=== PATIENT | female | born 1955 | race Caucasian/White ===

== ENCOUNTER → 2016-09-15 | Outpatient (CLI) | payer MEDICARE ==
--- NOTE | 2016-09-15 17:25 | REP ---
PET/CT: History: Restaging lymphoma after completed treatment. Stage III diffuse large B-cell lymphoma. Comparisons: Comparison PET-CT study from 03/11/2016. TECHNIQUE: 64 minutes following the intravenous injection of a 8.0 mCi dose of F-18 FDG, three-dimensional PET scintigraphy is acquired from the skull base to the proximal thighs. Triplanar noncontrast CT scanning is acquired through the same anatomic range for attenuation correction, and image registration with scan parameters optimized to minimize radiation exposure to the patient. PET scintigraphy and CT datasets were fused and displayed on a workstation with multiplanar and projection display capability. PET/CT Findings: The previously noted foci of hypermetabolic uptake have resolved. There is mildly increased FDG accumulation in an osteoarthritic appearing left first costochondral junction. No other abnormal hypermetabolic uptake is seen. The previously noted subclavian and axillary retrocrural and pleural-based hypermetabolic uptake is resolved. The upper abdominal periaortic lymphadenopathy is much improved with some residual soft-tissue surrounding the aorta but no hypermetabolic focus seen. Impression: No abnormal hypermetabolic uptake is seen. The CT is much improved. Some residual soft- tissue density in the area of the retrocrural and the periaortic lymphadenopathy but no hypermetabolic FDG distribution is observed. Signed by Pete Ramirez MD 09/15/2016 08:16 P
== END ==
LOC: M RAD 10:08
PROVIDERS: ATTEND Internal Medicine Medical Oncology
DX: C82.99 Follicular lymphoma, unspecified, extranodal and solid organ sites (principal)
CPT/HCPCS: 78815; A9552

== ENCOUNTER → 2016-10-25 | Outpatient (CLI) | payer MEDICARE ==
--- NOTE | 2016-10-25 11:17 | REPMRS ---
Patient History The patient states she had a clinical breast exam in 08/13.Patient is postmenopausal. No known family history of cancer. Took hormonal contraceptives for 6 years. Took unspecified hormones for 10 years. Digital Mammo Screening Bilat: October 25, 2016 - Exam #: [id number] Bilateral CC and MLO view(s) were taken. Technologist: Khushbu Herrera, Technologist Prior study comparison: October 22, 2015, bilateral digital mammo screening bilat performed at [facility]. September 30, 2014, bilateral digital mammo screening bilat performed at [facility]. September 27, 2013, bilateral bilat screen digital mammo, performed at [facility] ([facility]). FINDINGS: The breast tissue is almost entirely fat. There has been no change in the appearance of the mammogram from the prior studies. There is no interval development of dominant mass, architectural distortion, or clustered microcalcification typical of malignancy. ASSESSMENT: BI-RADS/ACR category 1 mammogram. Negative. Recommendation Routine screening mammogram of both breasts in 1 year (for women over age 40). This mammogram was interpreted with the aid of an FDA-approved computer-aided dectection system. Electronically Signed By: Jasvir Ramirez MD 10/25/16 [id number]
== END ==
LOC: M RAD 08:44
PROVIDERS: ATTEND Family Medicine
DX: Z12.31 Encounter for screening mammogram for malignant neoplasm of breast (principal)

== ENCOUNTER → 2016-11-12 | Outpatient (REF) | payer MEDICARE ==
[2016-11-12 12:04] LABS: BASO % 0.5 % (0.0-1.0); EOS # 0.1 K/mm3 (0.0-0.50); EOS % 1.7 % (0.0-3.0); LARGE UNSTAINED CELL # 0.1 K/mm3 (0.0-0.4); LARGE UNSTAINED CELL % 2.2 % (0.0-4.0); LYMPH # 1.9 K/mm3 (1.5-4.5); LYMPH % 30.4 % (24.0-44.0); MEAN CORPUSCULAR HEMOGLOBIN 33.2 pg (27.0-33.0); MEAN CORPUSCULAR HGB CONC 31.7 g/dl (32.0-36.5); MONO # 0.4 K/mm3 (0.0-0.8); MONO % 6.1 % (0.0-5.0); NEUTROPHILS # 3.5 K/mm3 (1.8-7.7); NEUTROPHILS % 59.1 % (36.0-66.0); PLATELET COUNT, AUTOMATED 237 k/mm3 (150-450); RED CELL DISTRIBUTION WIDTH 13.1 % (11.5-14.5); WHITE BLOOD COUNT 5.9 K/mm3 (4.0-10.0)
[2016-11-12 12:27] LABS: ALBUMIN 3.4 GM/DL (3.2-5.2); ALBUMIN/GLOBULIN RATIO 1.21 (1.00-1.93); ALKALINE PHOSPHATASE 89 U/L (45-117); ALT/SGPT 16 U/L (12-78); ANION GAP 8 MEQ/L (8-16); AST/SGOT 17 U/L (15-37); BILIRUBIN,TOTAL 0.3 MG/DL (0.2-1.0); BLOOD UREA NITROGEN 17 MG/DL (7-18); CALCIUM LEVEL 9.3 MG/DL (8.8-10.2); CARBON DIOXIDE LEVEL 29 MEQ/L (21-32); CHLORIDE LEVEL 108 MEQ/L (98-107); CHOLESTEROL LEVEL 148 MG/DL (<200); CREATININE FOR GFR 0.65 MG/DL (0.55-1.02); FERRITIN 62 NG/ML (8-252); GLOMERULAR FILTRATION RATE > 60.0 (>45); GLUCOSE, FASTING 99 MG/DL (80-110); PERCENT SATURATION 16.4 % (13.2-37.4); POTASSIUM SERUM 4.3 MEQ/L (3.5-5.1); SODIUM LEVEL 145 MEQ/L (136-145); TOTAL IRON BINDING CAPACITY 330 UG/DL (250-450); TOTAL PROTEIN 6.2 GM/DL (6.4-8.2); TRIGLYCERIDES LEVEL 64 MG/DL (<150)
== END ==
LOC: M SFHCPLAZ 09:06
PROVIDERS: ATTEND Family Medicine
DX: D50.9 Iron deficiency anemia, unspecified (principal); R73.01 Impaired fasting glucose; E53.8 Deficiency of other specified B group vitamins; Z79.899 Other long term (current) drug therapy

== ENCOUNTER → 2016-11-19 | Outpatient (REF) | payer MEDICARE | LOC: M SFHCPLAZ 11:03 | PROVIDERS: ATTEND Family Medicine | DX: M19.90 Unspecified osteoarthritis, unspecified site (principal) ==

== ENCOUNTER → 2016-12-02 | Outpatient (REF) | payer MEDICARE | LOC: M SFHCPLAZ 11:28 | PROVIDERS: ATTEND Family Medicine | DX: L57.0 Actinic keratosis (principal); D22.5 Melanocytic nevi of trunk ==

== ENCOUNTER → 2017-03-16 | Outpatient (CLI) | payer MEDICARE ==
--- NOTE | 2017-03-16 16:32 | REP ---
CT abdomen and pelvis with IV and oral contrast: Comparison is 02/09/2016. Multiphase scanning is performed initially without IV contrast and followed by dual phase contrast enhanced scanning during the arterial phase of enhancement and during the delayed equilibrium phase of enhancement. The liver and spleen are homogeneous and normal size and unchanged. Surgical clips are again identified in the gallbladder fossa. The pancreas is normal size and unremarkable. The adrenals and kidneys are unremarkable except for a nonobstructive right renal lower pole 8 mm calcification. This is unchanged. No left renal calculus is identified, the left renal calculus identified on the comparison study is no longer present. The retrocrural retroperitoneal adenopathy on the comparison study has significantly reduced in size. There is no iliac or femoral adenopathy in the pelvis. There is no mesenteric adenopathy. There is no ascites. There is no bowel distension. Pelvis: The appendix is surgically absent. There is no ascites or adenopathy. The bladder is unremarkable. There are no lytic, blastic or destructive skeletal changes. There is advanced degenerative disc disease at L5 -S1. Impression: The retrocrural/retroperitoneal adenopathy has significantly decreased in size. The previous nonobstructive left renal calculus is no longer present. There is a persisting nonobstructive right renal calculus. Liver and spleen are normal size. There is no ascites. Signed by Denys Herrera MD 03/16/2017 04:24 P
--- NOTE | 2017-03-16 17:36 | REP ---
CT study of the chest with IV contrast: History: Restaging lymphadenopathy. History of non-Hodgkins lymphoma. Comparison chest CT study 02/20/2016. CT contrast dose: 100 mL of Isovue [address] findings: No axillary or supraclavicular adenopathy is appreciated. No hilar or mediastinal mass or adenopathy is seen. There is a stable AP window region lymph node unchanged. The previously noted. Vertebral soft tissue mass lesion extending in the retrocrural space is improved significantly since the 02/20/2016 prior study. There is still some retrocrural and paravertebral soft tissue density but this is much less prominent. The lower thoracic aorta was somewhat uplifted by this process on the prior study. At the level of the origin of the celiac axis, the distance between the anterior cortex of the vertebral body and the posterior wall of the aorta is 4 mm today. Previously 8 mm. The paravertebral retrocrural lesion does extend down to the bottom of the imaging field of view for today's study. There is some thickening of the left adrenal gland which appears to be somewhat improved as well. No pleural effusion is seen. No pericardial effusion is seen. There is a mild pectus deformity. Lung window settings show some right apical posterior pleuroparenchymal scarring and some left apical posterior pleuroparenchymal scarring. No pulmonary nodule or mass lesion is seen. No bony destructive lesion is appreciated. Impression: Previously noted infiltrative prevertebral disease in the lower thoracic region and retrocrural region is improved. Enlargement of the left adrenal gland is again noted also improved. No new disease focus is appreciated. Signed by Pete Ramirez MD 03/17/2017 04:04 P
--- NOTE | 2017-03-16 17:47 | REP ---
CT NECK WITH CONTRAST: HISTORY: Non-Hodgkins lymphoma. CONTRAST: Isovue-370 75 mL. COMPARISON: 02/09/2016. There is a 9 cm cyst is present in the left tongue base. This is unchanged in size compared to the previous study. The cyst abuts the epiglottis. 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 This is unchanged compared to the previous study. The naso-, fredi-, and hypopharynx, larynx, and subglottic trachea are otherwise normal in appearance. The salivary glands are normal. The thyroid glands is hypoplastic. Small lymph nodes less than 1 cm in size are present in the internal jugular chains, posterior triangles and submandibular areas. There has been resolution of the previously noted left supraclavicular lymphadenopathy. Atherosclerotic calcification is present at the carotid bifurcations. Degenerative change is present in the cervical spine. Scarring is present in the lung apices. The visualized sinuses are clear. IMPRESSION: 1. 9 mm left tongue base cyst unchanged in size compared to the previous study. 2. There is a topic thyroid gland in the midline subcutaneous tissue anterior to the larynx. 3. There has been resolution of the previously noted left supraclavicular lymphadenopathy. Signed by Zain Mendiola MD 03/17/2017 08:18 A
== END ==
LOC: M RAD 13:52
PROVIDERS: ATTEND Internal Medicine Medical Oncology
DX: Z85.79 Personal history of other malignant neoplasms of lymphoid, hematopoietic and related tissues (principal)

== ENCOUNTER → 2017-03-31 | Outpatient (REF) | payer MEDICARE ==
[2017-03-31 12:57] LABS: BASO % 0.5 % (0.0-1.0); EOS # 0.1 K/mm3 (0.0-0.50); EOS % 2.2 % (0.0-3.0); LARGE UNSTAINED CELL # 0.1 K/mm3 (0.0-0.4); LARGE UNSTAINED CELL % 1.2 % (0.0-4.0); LYMPH # 1.8 K/mm3 (1.5-4.5); LYMPH % 27.4 % (24.0-44.0); MEAN CORPUSCULAR HEMOGLOBIN 33.6 pg (27.0-33.0); MEAN CORPUSCULAR HGB CONC 33.1 g/dl (32.0-36.5); MEAN CORPUSCULAR VOLUME 101.6 fl (80.0-96.0); MONO # 0.4 K/mm3 (0.0-0.8); NEUTROPHILS # 3.9 K/mm3 (1.8-7.7); NEUTROPHILS % 62.7 % (36.0-66.0); PLATELET COUNT, AUTOMATED 223 k/mm3 (150-450); RED CELL DISTRIBUTION WIDTH 13.7 % (11.5-14.5); WHITE BLOOD COUNT 6.3 K/mm3 (4.0-10.0)
[2017-03-31 13:21] LABS: ALBUMIN 3.3 GM/DL (3.2-5.2); ALBUMIN/GLOBULIN RATIO 1.03 (1.00-1.93); ALKALINE PHOSPHATASE 97 U/L (45-117); ALT/SGPT 21 U/L (12-78); ANION GAP 7 MEQ/L (8-16); AST/SGOT 15 U/L (15-37); BILIRUBIN,TOTAL 0.4 MG/DL (0.2-1.0); BLOOD UREA NITROGEN 12 MG/DL (7-18); CALCIUM LEVEL 9.3 MG/DL (8.8-10.2); CARBON DIOXIDE LEVEL 29 MEQ/L (21-32); CHLORIDE LEVEL 108 MEQ/L (98-107); CREATININE FOR GFR 0.68 MG/DL (0.55-1.02); FERRITIN 59 NG/ML (8-252); GLOMERULAR FILTRATION RATE > 60.0 (>45); GLUCOSE, FASTING 97 MG/DL (80-110); PERCENT SATURATION 22.3 % (13.2-45.0); POTASSIUM SERUM 4.3 MEQ/L (3.5-5.1); SODIUM LEVEL 144 MEQ/L (136-145); TOTAL IRON BINDING CAPACITY 345 UG/DL (250-450); TOTAL PROTEIN 6.5 GM/DL (6.4-8.2)
== END ==
LOC: M SFHCPLAZ 08:43
PROVIDERS: ATTEND Family Medicine
DX: D50.9 Iron deficiency anemia, unspecified (principal); E55.9 Vitamin D deficiency, unspecified; R73.01 Impaired fasting glucose

== ENCOUNTER → 2017-09-26 | Outpatient (CLI) | payer OTHER ==
[~2017-09-26] MED LIST: GASTROGRAFIN SOLUTION 30ML (Q9963) As Ordered; ISOVUE-370 76% 100ML VIAL (Q9967) As Ordered
== END ==
LOC: M RAD 09:15
DX: C83.30 Diffuse large B-cell lymphoma, unspecified site (principal)
CPT/HCPCS: Q9963

== ENCOUNTER → 2017-10-18 | Outpatient (CLI) | payer OTHER | LOC: M PLARAD 09:19 | DX: R93.5 Abnormal findings on diagnostic imaging of other abdominal regions, including retroperitoneum (principal); Z85.72 Personal history of non-Hodgkin lymphomas | CPT/HCPCS: 78815 ==

== ENCOUNTER → 2017-10-24 | Outpatient (REF) | payer MEDICARE ==
[2017-10-24 11:59] LABS: BASO % 0.5 % (0.0-1.0); EOS # 0.1 10^3/uL (0.0-0.50); EOS % 1.1 % (0.0-3.0); HEMATOCRIT 37.6 % (36.0-47.0); HEMOGLOBIN 12.4 g/dl (12.0-16.0); IMMATURE GRANULOCYTE % 0.3 % (0-3.0); LYMPH # 2.7 10^3/uL (1.5-4.5); LYMPH % 30.7 % (24.0-44.0); MEAN CORPUSCULAR HEMOGLOBIN 32.5 pg (27.0-33.0); MEAN CORPUSCULAR VOLUME 98.7 fl (80.0-96.0); MONO # 0.8 10^3/uL (0.0-0.8); MONO % 8.8 % (0.0-5.0); NEUTROPHILS # 5.1 10^3/uL (1.8-7.7); NEUTROPHILS % 58.6 % (36.0-66.0); PLATELET COUNT, AUTOMATED 318 10^3/uL (150-450); RED BLOOD COUNT 3.81 10^6/uL (4.00-5.40); RED CELL DISTRIBUTION WIDTH 13.8 % (11.5-14.5); WHITE BLOOD COUNT 8.8 10^3/uL (4.0-10.0)
[2017-10-24 12:09] LABS: ESTIMATED AVERAGE GLUCOSE 140 MG/DL (60-110); HEMOGLOBIN A1c 6.5 %
[2017-10-24 12:13] LABS: APPEARANCE, URINE CLEAR (CLEAR); BACTERIA, URINE AUTO 1+ (NEGATIVE); BILIRUBIN, URINE AUTO NEGATIVE (NEGATIVE); BLOOD, URINE BLOOD 1+ (NEGATIVE); COLOR, URINE YELLOW (YELLOW); GLUCOSE, URINE (UA) AUTO NEGATIVE (NEGATIVE); KETONE, URINE AUTO NEGATIVE (NEGATIVE); LEUKOCYTE ESTERASE, URINE AUTO TRACE (NEGATIVE); NITRITE, URINE AUTO NEGATIVE (NEGATIVE); PROTEIN, URINE AUTO NEGATIVE (NEGATIVE); RBC, URINE AUTO 5 /HPF (0-3); SQUAMOUS EPITHELIAL CELL UR AU 0 /HPF (0-6); UROBILINOGEN, URINE AUTO 0.2 mg/dL (0.0-2.0); WBC, URINE AUTO 2 /HPF (0-3)
[2017-10-24 12:14] LABS: VITAMIN B12 LEVEL 1615 PG/ML (247-911)
[2017-10-24 12:22] LABS: CHOLESTEROL LEVEL 160 MG/DL (<200); CHOLESTEROL RISK RATIO 2.711 (<5); FREE T4 1.18 NG/DL (0.76-1.46); HDL CHOLESTEROL 59 MG/DL (>40); LDL CHOLESTEROL 85.4 MG/DL (<100); NON-HDL-C 101 MG/DL; TRIGLYCERIDES LEVEL 78 MG/DL (<150)
[2017-10-24 12:32] LABS: CREATININE, URINE 74.6 MG/DL; MALB URINE SIEMENS 6.9 MG/L; MAU/CREAT RATIO 9.2 MCG/MG (0.0-30.0)
[2017-10-25 10:22] LABS: H PYLORI SERUM QUANT IgG ABY 0.15 (0.00-0.79)
== END ==
LOC: M SFHCPLAZ 08:33
DX: D50.9 Iron deficiency anemia, unspecified (principal); E03.9 Hypothyroidism, unspecified; R73.01 Impaired fasting glucose; M19.90 Unspecified osteoarthritis, unspecified site; E53.8 Deficiency of other specified B group vitamins
CPT/HCPCS: 84443

== ENCOUNTER → 2017-10-26 | Outpatient (CLI) | payer OTHER | LOC: M RAD 08:18 | DX: Z12.31 Encounter for screening mammogram for malignant neoplasm of breast (principal); C85.12 Unspecified B-cell lymphoma, intrathoracic lymph nodes; Z78.0 Asymptomatic menopausal state; Z92.0 Personal history of contraception; Z92.23 Personal history of estrogen therapy; E65 Localized adiposity; Z79.899 Other long term (current) drug therapy | CPT/HCPCS: 77067 ==

== ENCOUNTER → 2017-10-26 | Outpatient (REF) | payer OTHER ==
[2017-10-26 17:27] LABS: INR 0.99; PROTHROMBIN TIME 13.2 SECONDS (12.4-14.5)
[2017-10-26 17:28] LABS: PARTIAL THROMBOPLASTIN TIME 30.9 SECONDS (26.8-37.9)
[2017-10-26 18:17] LABS: IMMUNOGLOBULIN G 878 MG/DL (681-1648)
[2017-10-26 18:17] LABS: URIC ACID 4.6 MG/DL (2.6-6.0)
[2017-10-26 22:30] LABS: IMMUNOGLOBULIN M 13.8 MG/DL (40-230)
[2017-10-29 00:06] LABS: BETA 2 MICROGLOBULIN 1.6 mg/L (0.6-2.4)
== END ==
LOC: M LAB REF 16:33
DX: C85.12 Unspecified B-cell lymphoma, intrathoracic lymph nodes (principal)

== ENCOUNTER → 2017-10-27 | Outpatient (CLI) | payer OTHER | LOC: M RADPRO 12:53 | DX: D48.7 Neoplasm of uncertain behavior of other specified sites (principal); C85.15 Unspecified B-cell lymphoma, lymph nodes of inguinal region and lower limb; Z88.0 Allergy status to penicillin; Z88.8 Allergy status to other drugs, medicaments and biological substances; Z88.5 Allergy status to narcotic agent; Z79.82 Long term (current) use of aspirin; Z79.899 Other long term (current) drug therapy | CPT/HCPCS: 38505 ==

== ENCOUNTER → 2017-11-07 | Outpatient (REF) | payer OTHER ==
[2017-11-07 14:21] LABS: URIC ACID 3.1 MG/DL (2.6-6.0)
== END ==
LOC: M LAB REF 13:43
DX: C85.99 Non-Hodgkin lymphoma, unspecified, extranodal and solid organ sites (principal)
CPT/HCPCS: 84550

== ENCOUNTER → 2017-11-14 | Outpatient (REF) | payer OTHER ==
[2017-11-14 18:48] LABS: URIC ACID 2.7 MG/DL (2.6-6.0)
== END ==
LOC: M LAB REF 17:34
DX: C85.10 Unspecified B-cell lymphoma, unspecified site (principal)
CPT/HCPCS: 84550

== ENCOUNTER → 2017-11-15 | Outpatient (CLI) | payer OTHER ==
[~2017-11-15] MED LIST changes: -GASTROGRAFIN SOLUTION 30ML (Q9963) As Ordered
== END ==
LOC: M RAD 06:44
DX: C85.90 Non-Hodgkin lymphoma, unspecified, unspecified site (principal)
CPT/HCPCS: Q9967

== ENCOUNTER → 2017-11-28 | Outpatient (REF) | payer OTHER ==
[2017-11-28 13:27] LABS: URIC ACID 2.6 MG/DL (2.6-6.0)
== END ==
LOC: M LAB REF 12:44
DX: C83.30 Diffuse large B-cell lymphoma, unspecified site (principal)
CPT/HCPCS: 84550

== ENCOUNTER → 2017-12-12 | Outpatient (CLI) | payer OTHER ==
[~2017-12-12] MED LIST changes: +GASTROGRAFIN SOLUTION 30ML (Q9963) As Ordered
== END ==
LOC: M RAD 08:56
DX: C85.12 Unspecified B-cell lymphoma, intrathoracic lymph nodes (principal); C83.18 Mantle cell lymphoma, lymph nodes of multiple sites
CPT/HCPCS: Q9963

== ENCOUNTER 2017-12-26 14:28 | Outpatient (CLI) | payer OTHER ==
[2017-12-26] MEDS: diphenhydrAMINE 25 MG CAP PO (15:09)
[2017-12-26] MEDS: ACETAMINOPHEN TAB 650MG DOSE (2X325MG) PO (15:10)
== END 2017-12-26 21:05 | disposition home or self-care (01) ==
LOC: M OPCLI4PV 14:28 → M PCU 14:32 → M OPCLI4PV 21:05
DX: D64.81 Anemia due to antineoplastic chemotherapy (principal); C83.18 Mantle cell lymphoma, lymph nodes of multiple sites; C85.12 Unspecified B-cell lymphoma, intrathoracic lymph nodes; Z88.8 Allergy status to other drugs, medicaments and biological substances; Z88.0 Allergy status to penicillin; Z88.5 Allergy status to narcotic agent
CPT/HCPCS: 36430

== ENCOUNTER → 2017-12-26 | Outpatient (REF) | payer OTHER ==
[2017-12-26 17:47] LABS: IMMEDIATE SPIN CROSSMATCH 1 2
== END ==
LOC: M LAB REF 09:42
DX: Z12.39 Encounter for other screening for malignant neoplasm of breast (principal); D64.81 Anemia due to antineoplastic chemotherapy

== ENCOUNTER → 2018-01-10 | Outpatient (REF) | payer OTHER ==
[2018-01-10 13:33] LABS: INR 1.05; PROTHROMBIN TIME 13.8 SECONDS (12.4-14.5)
[2018-01-10 13:34] LABS: PARTIAL THROMBOPLASTIN TIME 29.1 SECONDS (26.8-37.9)
== END ==
LOC: M LAB REF 12:55
DX: C85.12 Unspecified B-cell lymphoma, intrathoracic lymph nodes (principal); C83.38 Diffuse large B-cell lymphoma, lymph nodes of multiple sites; Z79.01 Long term (current) use of anticoagulants
CPT/HCPCS: 85610

== ENCOUNTER 2018-01-13 11:02 | Inpatient (IN) | payer OTHER ==
[2018-01-13] MEDS ORDERED: ACETAMINOPHEN TAB 650MG DOSE (2X325MG) As Ordered (11:52)
[2018-01-13] MEDS: NS 1,000 ML IV (11:54)
[2018-01-13] MEDS: ACETAMINOPHEN TAB 650MG DOSE (2X325MG) PO (11:54)
[2018-01-13 12:09] LABS: BASO % 0.2 % (0.0-1.0); EOS % 0.2 % (0.0-3.0); HEMATOCRIT 25.6 % (36.0-47.0); HEMOGLOBIN 8.7 g/dl (12.0-15.5); IMMATURE GRANULOCYTE % 0.5 % (0-3.0); LYMPH # 0.7 10^3/uL (1.5-4.5); LYMPH % 6.6 % (24.0-44.0); MONO # 0.1 10^3/uL (0.0-0.8); MONO % 1.3 % (0.0-5.0); NEUTROPHILS # 9.2 10^3/uL (1.8-7.7); NEUTROPHILS % 91.2 % (36.0-66.0); PLATELET COUNT, AUTOMATED 193 10^3/uL (150-450); RED BLOOD COUNT 2.64 10^6/uL (4.00-5.40); RED CELL DISTRIBUTION WIDTH 20.4 % (11.5-14.5); VENOUS BASE EXCESS 4.9 (-2.0-2.0); VENOUS HCO3 30.8 MEQ/L (23.0-27.0); VENOUS O2 SATURATION 59.5 % (60.0-80.0); VENOUS PARTIAL PRESSURE CO2 53.3 mmHg (38.0-50.0); VENOUS PARTIAL PRESSURE O2 32.6 mmHg (30.0-50.0); VENOUS STANDARD HCO3 28.2 MEQ/L; VENOUS TOTAL CO2 32.5 MEQ/L (24.0-28.0); WHITE BLOOD COUNT 10.1 10^3/uL (4.0-10.0)
[2018-01-13 12:38] LABS: ALBUMIN 2.8 GM/DL (3.2-5.2); ALBUMIN/GLOBULIN RATIO 0.82 (1.00-1.93); ALKALINE PHOSPHATASE 111 U/L (45-117); ALT/SGPT 18 U/L (12-78); ANION GAP 6 MEQ/L (8-16); AST/SGOT 25 U/L (7-37); BILIRUBIN,DIRECT 0.2 MG/DL (0.0-0.2); BILIRUBIN,TOTAL 0.6 MG/DL (0.2-1.0); BLOOD UREA NITROGEN 21 MG/DL (7-18); CALCIUM LEVEL 7.7 MG/DL (8.8-10.2); CARBON DIOXIDE LEVEL 33 MEQ/L (21-32); CHLORIDE LEVEL 96 MEQ/L (98-107); CPK CREATINE PHOSPHOKINASE 118 U/L (26-192); CREATININE FOR GFR 1.29 MG/DL (0.55-1.30); GLOMERULAR FILTRATION RATE 44.3 (>45); GLUCOSE, FASTING 96 MG/DL (70-100); POTASSIUM SERUM 2.8 MEQ/L (3.5-5.1); SODIUM LEVEL 135 MEQ/L (136-145); TOTAL PROTEIN 6.2 GM/DL (6.4-8.2); TROPONIN I 0.03 NG/ML (< 0.10)
[2018-01-13 12:38] LABS: LACTIC ACID SEPSIS PROTOCOL 1.7 MMOL/L (0.4-2.0)
[2018-01-13] MEDS: CEFEPIME HCL 1 GM in D5W MINI-BAG PLUS 50 ML IV (12:40)
[2018-01-13 12:44] LABS: MB/CK RELATIVE INDEX 0.84 (< OR =4)
[2018-01-13] MEDS: POTASSIUM CHLORIDE 10 MEQ SR TABLET PO (13:04)
[2018-01-13 14:53] LABS: KETONE, URINE AUTO RFX NEGATIVE (NEGATIVE); NITRITE, URINE AUTO RFX NEGATIVE (NEGATIVE); RBC, URINE AUTO RFX 5 /HPF (0-3); SPECIFIC GRAVITY UR AUTO RFX 1.008 (1.002-1.035); SQUAM EPITHELIAL CELL UR AURFX 2 /HPF (0-6); WBC, URINE AUTO RFX 8 /HPF (0-3)
[2018-01-13 15:06] LABS: MAGNESIUM LEVEL 1.2 MG/DL (1.8-2.4)
[2018-01-13] MEDS: IPRATROPIUM 0.5MG/ALBUTEROL 2.5MG INH SOL UD 3ML (DUONEB)(J7620) NEB (15:08)
[2018-01-13] MEDS ORDERED: NS 1,000 ML IV (15:16)
[2018-01-13 15:40] LABS: IONIZED CALCIUM 4.2 MG/DL (4.5-5.3)
[2018-01-13 15:40] LABS: ABG BASE EXCESS 3.2 (-2.0-2.0); ABG HCO3 27.8 MEQ/L (22.0-26.0); ABG O2 SATURATION 92.8 % (95.0-99.0); ABG PARTIAL PRESSURE O2 71.3 mmHg (75.0-100.0); ABG STANDARD HCO3 27.3 MEQ/L (22.0-26.0); ABG TOTAL CO2 29.2 MEQ/L (23.0-31.0); ABG pH (ARTERIAL) 7.429 UNITS (7.350-7.450)
[2018-01-13] MEDS ORDERED: ALBUTEROL SULFATE 2.5 MG/0.5 ML INH NEB SOLN NEB (15:45)
[2018-01-13 16:05] LABS: LEUKOCYTE ESTERASE UR AUTO RFX TRACE (NEGATIVE)
[2018-01-13] MEDS ORDERED: PROCHLORPERAZINE 5 MG TAB (S0183) PO (17:00)
[2018-01-13] MEDS ORDERED: OLANZapine 10 MG TAB PO (17:00)
[2018-01-13 17:27] LABS: ERYTHROCYTE SEDIMENTATION RATE 129 mm/hr (0-30)
[2018-01-13] MEDS: GABAPENTIN 300 MG CAP PO ×2 (18:42→21:51)
[2018-01-13] MEDS: KCL 10MEQ/100ML SWI (KRUN) 10 MEQ in APPROPRIATE DILUENT 1 EA IV (18:42)
[2018-01-13] MEDS: MAGNESIUM OXIDE 400 MG TAB (MAG-OX) PO ×2 (18:42→21:52)
[2018-01-13] MEDS: BACLOFEN 10 MG TAB PO ×2 (18:42→21:52)
[2018-01-13] MEDS: ENOXAPARIN 40 MG/0.4 ML SYRINGE (J1650) SC (18:50)
[2018-01-13] MEDS: VANCOMYCIN HCL 1,000 MG, VIAL MATE ADAPTER 1 EACH in D5W 250 ML IV (20:14)
[2018-01-13] MEDS: MAG SULF 1GM/100ML (MAG RUN) 1 GM in APPROPRIATE DILUENT 1 EA IV ×2 (20:34→21:43)
[2018-01-13 20:40] LABS: ANION GAP 5 MEQ/L (8-16); BLOOD UREA NITROGEN 21 MG/DL (7-18); CALCIUM LEVEL 7.5 MG/DL (8.8-10.2); CARBON DIOXIDE LEVEL 31 MEQ/L (21-32); CHLORIDE LEVEL 100 MEQ/L (98-107); GLOMERULAR FILTRATION RATE 48.1 (>45); GLUCOSE, FASTING 99 MG/DL (70-100); MAGNESIUM LEVEL 1.2 MG/DL (1.8-2.4); POTASSIUM SERUM 3.5 MEQ/L (3.5-5.1); SODIUM LEVEL 136 MEQ/L (136-145)
[2018-01-13] MEDS: ADVAIR HFA 115/21MCG INHALER INH (21:00)
[2018-01-13] MEDS: VANCOMYCIN HCL 500 MG in D5W MINI-BAG PLUS 100 ML IV (21:43)
[2018-01-13] MEDS: KCL 20MEQ in NS 1000ML 1,000 ML IV (21:44)
[2018-01-13] MEDS: SIMVASTATIN 40 MG TAB PO (21:51)
[2018-01-13] MEDS: NYSTATIN 500,000 U/5 ML SUSP UDC SS (21:51)
[2018-01-13] MEDS: PRAMIPEXOLE 0.25 MG TAB PO (21:52)
[2018-01-13] MEDS: DOCUSATE SODIUM 100 MG CAP PO (21:52)
[2018-01-14] MEDS: CEFEPIME HCL 1 GM in D5W MINI-BAG PLUS 50 ML IV ×2 (01:20→12:58)
[2018-01-14 05:03] LABS: HEMATOCRIT 22.6 % (36.0-47.0); HEMOGLOBIN 7.6 g/dl (12.0-15.5); MEAN CORPUSCULAR HEMOGLOBIN 32.8 pg (27.0-33.0); MEAN CORPUSCULAR HGB CONC 33.6 g/dl (32.0-36.5); MEAN CORPUSCULAR VOLUME 97.4 fl (80.0-96.0); PLATELET COUNT, AUTOMATED 138 10^3/uL (150-450); RED BLOOD COUNT 2.32 10^6/uL (4.00-5.40); RED CELL DISTRIBUTION WIDTH 20.3 % (11.5-14.5); WHITE BLOOD COUNT 7.9 10^3/uL (4.0-10.0)
[2018-01-14 05:25] LABS: ANION GAP 7 MEQ/L (8-16); BLOOD UREA NITROGEN 18 MG/DL (7-18); CALCIUM LEVEL 7.7 MG/DL (8.8-10.2); CARBON DIOXIDE LEVEL 30 MEQ/L (21-32); CHLORIDE LEVEL 99 MEQ/L (98-107); CREATININE FOR GFR 1.06 MG/DL (0.55-1.30); GLOMERULAR FILTRATION RATE 55.6 (>45); GLUCOSE, FASTING 96 MG/DL (70-100); MAGNESIUM LEVEL 1.7 MG/DL (1.8-2.4); POTASSIUM SERUM 3.1 MEQ/L (3.5-5.1); SODIUM LEVEL 136 MEQ/L (136-145)
[2018-01-14] MEDS: BACLOFEN 10 MG TAB PO ×6 (05:25→21:48)
[2018-01-14] MEDS: LEVOTHYROXINE 88MCG TABLET (0.088 MG) PO (05:25)
[2018-01-14 05:43] LABS: ESTIMATED AVERAGE GLUCOSE 143 MG/DL (60-110); HEMOGLOBIN A1c 6.6 %
[2018-01-14] MEDS: VANCOMYCIN HCL 1,000 MG, VIAL MATE ADAPTER 1 EACH in D5W 250 ML IV ×2 (06:41→18:27)
[2018-01-14] MEDS: ADVAIR HFA 115/21MCG INHALER INH ×2 (07:31→21:06)
[2018-01-14 07:40] LABS: BEDSIDE GLUCOSE 127 MG/DL (80-115)
[2018-01-14] MEDS: NYSTATIN 500,000 U/5 ML SUSP UDC SS ×2 (09:15→21:48)
[2018-01-14] MEDS: GABAPENTIN 300 MG CAP PO ×4 (09:16→21:48)
[2018-01-14] MEDS: MAGNESIUM OXIDE 400 MG TAB (MAG-OX) PO ×3 (09:16→21:48)
[2018-01-14] MEDS: ESCITALOPRAM OXALATE 10 MG TAB (LEXAPRO) PO (09:16)
[2018-01-14] MEDS: ASPIRIN 81 MG ENTERIC TAB PO (09:16)
[2018-01-14] MEDS: ALLOPURINOL 300 MG TAB PO (09:17)
[2018-01-14] MEDS: CYANOCOBALAMIN 500 MCG TAB PO (09:17)
[2018-01-14] MEDS: ASCORBIC ACID 500 MG TAB PO (09:17)
[2018-01-14] MEDS: PRAMIPEXOLE 0.25 MG TAB PO ×2 (09:17→21:50)
[2018-01-14] MEDS: FOLIC ACID 1 MG TAB PO (09:17)
[2018-01-14] MEDS: OMEPRAZOLE 20 MG CAP PO (09:17)
[2018-01-14] MEDS: VITAMIN D 1,000 INTERNATIONAL UNITS TABLET PO (09:17)
[2018-01-14] MEDS: FERROUS SULFATE 325MG TAB PO (09:17)
[2018-01-14] MEDS: ENOXAPARIN 40 MG/0.4 ML SYRINGE (J1650) SC (09:19)
[2018-01-14 17:24] LABS: HEMATOCRIT 22.8 % (36.0-47.0); HEMOGLOBIN 7.6 g/dl (12.0-15.5)
[2018-01-14 17:56] LABS: MAGNESIUM LEVEL 1.4 MG/DL (1.8-2.4)
[2018-01-14] MEDS: POTASSIUM CHLORIDE 10 MEQ SR TABLET PO (18:27)
[2018-01-14 21:43] LABS: IMMEDIATE SPIN CROSSMATCH 1 1
[2018-01-14] MEDS: SIMVASTATIN 40 MG TAB PO (21:48)
[2018-01-14] MEDS: DOCUSATE SODIUM 100 MG CAP PO (21:48)
[2018-01-14] MEDS: MAGNESIUM CHLORIDE 64 MG TABCR (SLO MAG) PO (21:49)
[2018-01-15] MEDS: ONDANSETRON 4MG/2ML VIAL (J2405) IV ×2 (00:13→10:45)
[2018-01-15] MEDS: POTASSIUM CHLORIDE 10 MEQ SR TABLET PO ×3 (00:14→20:42)
[2018-01-15] MEDS: FUROSEMIDE 20 MG TAB PO (00:14)
[2018-01-15] MEDS: CEFEPIME HCL 1 GM in D5W MINI-BAG PLUS 50 ML IV ×2 (01:42→14:13)
[2018-01-15 06:33] LABS: HEMOGLOBIN 9.1 g/dl (12.0-15.5); MEAN CORPUSCULAR HEMOGLOBIN 32.4 pg (27.0-33.0); MEAN CORPUSCULAR VOLUME 92.5 fl (80.0-96.0); PLATELET COUNT, AUTOMATED 105 10^3/uL (150-450); RED BLOOD COUNT 2.81 10^6/uL (4.00-5.40); RED CELL DISTRIBUTION WIDTH 19.2 % (11.5-14.5); WHITE BLOOD COUNT 4.4 10^3/uL (4.0-10.0)
[2018-01-15] MEDS: LEVOTHYROXINE 88MCG TABLET (0.088 MG) PO (06:42)
[2018-01-15] MEDS: BACLOFEN 10 MG TAB PO ×6 (06:42→20:43)
[2018-01-15] MEDS: VANCOMYCIN HCL 1,000 MG, VIAL MATE ADAPTER 1 EACH in D5W 250 ML IV (06:43)
[2018-01-15 06:55] LABS: BLOOD UREA NITROGEN 14 MG/DL (7-18); CALCIUM LEVEL 7.9 MG/DL (8.8-10.2); CARBON DIOXIDE LEVEL 33 MEQ/L (21-32); CHLORIDE LEVEL 92 MEQ/L (98-107); CREATININE FOR GFR 1.02 MG/DL (0.55-1.30); GLOMERULAR FILTRATION RATE 58.1 (>45); GLUCOSE, FASTING 130 MG/DL (70-100); MAGNESIUM LEVEL 1.3 MG/DL (1.8-2.4)
[2018-01-15 06:56] LABS: VANCOMYCIN LEVEL TROUGH 20.6 UG/ML (10.0-20.0)
[2018-01-15 07:03] LABS: ANION GAP 9 MEQ/L (8-16); SODIUM LEVEL 134 MEQ/L (136-145)
[2018-01-15 07:29] LABS: POTASSIUM SERUM 2.9 MEQ/L (3.5-5.1)
[2018-01-15] MEDS: ADVAIR HFA 115/21MCG INHALER INH ×2 (08:22→21:00)
[2018-01-15] MEDS: OMEPRAZOLE 20 MG CAP PO (08:31)
[2018-01-15] MEDS: NYSTATIN 500,000 U/5 ML SUSP UDC SS ×2 (08:31→20:42)
[2018-01-15] MEDS: VITAMIN D 1,000 INTERNATIONAL UNITS TABLET PO (08:31)
[2018-01-15] MEDS: FOLIC ACID 1 MG TAB PO (08:31)
[2018-01-15] MEDS: MAGNESIUM OXIDE 400 MG TAB (MAG-OX) PO ×3 (08:33→20:43)
[2018-01-15] MEDS: ALLOPURINOL 300 MG TAB PO (08:34)
[2018-01-15] MEDS: ASCORBIC ACID 500 MG TAB PO (08:34)
[2018-01-15] MEDS: ASPIRIN 81 MG ENTERIC TAB PO (08:34)
[2018-01-15] MEDS: ESCITALOPRAM OXALATE 10 MG TAB (LEXAPRO) PO (08:34)
[2018-01-15] MEDS: FERROUS SULFATE 325MG TAB PO (08:34)
[2018-01-15] MEDS: CYANOCOBALAMIN 500 MCG TAB PO (08:34)
[2018-01-15] MEDS: ENOXAPARIN 40 MG/0.4 ML SYRINGE (J1650) SC (08:35)
[2018-01-15] MEDS: PRAMIPEXOLE 0.25 MG TAB PO ×2 (08:42→20:43)
[2018-01-15] MEDS: ACETAMINOPHEN TAB 650MG DOSE (2X325MG) PO ×2 (08:42→15:19)
[2018-01-15] MEDS: GABAPENTIN 300 MG CAP PO ×4 (08:42→20:43)
[2018-01-15 11:40] LABS: POTASSIUM SERUM 3.1 MEQ/L (3.5-5.1)
[2018-01-15] MEDS: IPRATROPIUM 0.5MG/ALBUTEROL 2.5MG INH SOL UD 3ML (DUONEB)(J7620) NEB ×2 (16:02→21:11)
[2018-01-15] MEDS: BENZONATATE 100 MG CAP PO (17:12)
[2018-01-15] MEDS: SIMVASTATIN 40 MG TAB PO (20:43)
[2018-01-15] MEDS: DOCUSATE SODIUM 100 MG CAP PO (20:43)
[2018-01-16] MEDS: CEFEPIME HCL 1 GM in D5W MINI-BAG PLUS 50 ML IV ×2 (00:19→12:44)
[2018-01-16] MEDS: IPRATROPIUM 0.5MG/ALBUTEROL 2.5MG INH SOL UD 3ML (DUONEB)(J7620) NEB ×4 (01:01→20:00)
[2018-01-16] MEDS: VANCOMYCIN HCL 1,000 MG, VIAL MATE ADAPTER 1 EACH in D5W 250 ML IV ×2 (01:08→18:07)
[2018-01-16] MEDS: BENZONATATE 100 MG CAP PO ×2 (01:43→12:44)
[2018-01-16] MEDS: LEVOTHYROXINE 88MCG TABLET (0.088 MG) PO (05:24)
[2018-01-16] MEDS: BACLOFEN 10 MG TAB PO ×6 (05:24→20:55)
[2018-01-16 05:26] LABS: ANION GAP 5 MEQ/L (8-16); BLOOD UREA NITROGEN 12 MG/DL (7-18); CALCIUM LEVEL 8.6 MG/DL (8.8-10.2); CARBON DIOXIDE LEVEL 37 MEQ/L (21-32); CHLORIDE LEVEL 92 MEQ/L (98-107); CREATININE FOR GFR 1.01 MG/DL (0.55-1.30); GLOMERULAR FILTRATION RATE 58.7 (>45); GLUCOSE, FASTING 110 MG/DL (70-100); MAGNESIUM LEVEL 1.4 MG/DL (1.8-2.4); POTASSIUM SERUM 3.3 MEQ/L (3.5-5.1); SODIUM LEVEL 134 MEQ/L (136-145)
[2018-01-16 05:30] LABS: BASO % 0.3 % (0.0-1.0); EOS % 0.5 % (0.0-3.0); HEMATOCRIT 26.6 % (36.0-47.0); IMMATURE GRANULOCYTE % 0.5 % (0-3.0); LYMPH # 0.8 10^3/uL (1.5-4.5); LYMPH % 12.4 % (24.0-44.0); MEAN CORPUSCULAR HEMOGLOBIN 31.8 pg (27.0-33.0); MEAN CORPUSCULAR HGB CONC 33.8 g/dl (32.0-36.5); MONO % 17.2 % (0.0-5.0); NEUTROPHILS # 4.2 10^3/uL (1.8-7.7); NEUTROPHILS % 69.1 % (36.0-66.0); RED BLOOD COUNT 2.83 10^6/uL (4.00-5.40); RED CELL DISTRIBUTION WIDTH 19.5 % (11.5-14.5); WHITE BLOOD COUNT 6.1 10^3/uL (4.0-10.0)
[2018-01-16 05:53] LABS: IMMATURE PLATELET FRACTION % 2.5 % (0.0-9.6); PLATELET COUNT, AUTOMATED 68 10^3/uL (150-450)
[2018-01-16] MEDS ORDERED: ISOVUE-370 76% 100ML VIAL (Q9967) As Ordered (07:41)
[2018-01-16] MEDS: ENOXAPARIN 40 MG/0.4 ML SYRINGE (J1650) SC (09:00)
[2018-01-16] MEDS: NYSTATIN 500,000 U/5 ML SUSP UDC SS ×2 (09:04→20:53)
[2018-01-16] MEDS: ALLOPURINOL 300 MG TAB PO (09:05)
[2018-01-16] MEDS: ASPIRIN 81 MG ENTERIC TAB PO (09:05)
[2018-01-16] MEDS: VITAMIN D 1,000 INTERNATIONAL UNITS TABLET PO (09:05)
[2018-01-16] MEDS: OMEPRAZOLE 20 MG CAP PO (09:05)
[2018-01-16] MEDS: GABAPENTIN 300 MG CAP PO ×4 (09:06→20:55)
[2018-01-16] MEDS: FOLIC ACID 1 MG TAB PO (09:06)
[2018-01-16] MEDS: MAGNESIUM OXIDE 400 MG TAB (MAG-OX) PO ×3 (09:06→20:55)
[2018-01-16] MEDS: POTASSIUM CHLORIDE 10 MEQ SR TABLET PO ×2 (09:06→20:54)
[2018-01-16] MEDS: PRAMIPEXOLE 0.25 MG TAB PO ×2 (09:07→20:55)
[2018-01-16] MEDS: CYANOCOBALAMIN 500 MCG TAB PO (09:07)
[2018-01-16] MEDS: ESCITALOPRAM OXALATE 10 MG TAB (LEXAPRO) PO (09:07)
[2018-01-16] MEDS: FERROUS SULFATE 325MG TAB PO (09:07)
[2018-01-16] MEDS: ASCORBIC ACID 500 MG TAB PO (09:08)
[2018-01-16] MEDS: ADVAIR HFA 115/21MCG INHALER INH ×3 (09:19→21:07)
[2018-01-16] MEDS ORDERED: SLF 3 ML SYR IV (12:30)
[2018-01-16] MEDS: SLF 3 ML SYR IV ×2 (12:44→20:56)
[2018-01-16] MEDS: ACETAMINOPHEN TAB 650MG DOSE (2X325MG) PO (16:04)
[2018-01-16] MEDS: DOCUSATE SODIUM 100 MG CAP PO (20:55)
[2018-01-16] MEDS: SIMVASTATIN 40 MG TAB PO (20:56)
[2018-01-17] MEDS: CEFEPIME HCL 1 GM in D5W MINI-BAG PLUS 50 ML IV ×2 (00:56→13:05)
[2018-01-17] MEDS: BENZONATATE 100 MG CAP PO ×2 (01:26→22:10)
[2018-01-17] MEDS: IPRATROPIUM 0.5MG/ALBUTEROL 2.5MG INH SOL UD 3ML (DUONEB)(J7620) NEB ×4 (01:43→20:00)
[2018-01-17 06:13] LABS: HEMATOCRIT 27.7 % (36.0-47.0); HEMOGLOBIN 9.2 g/dl (12.0-15.5); MEAN CORPUSCULAR HEMOGLOBIN 31.8 pg (27.0-33.0); MEAN CORPUSCULAR HGB CONC 33.2 g/dl (32.0-36.5); MEAN CORPUSCULAR VOLUME 95.8 fl (80.0-96.0); RED BLOOD COUNT 2.89 10^6/uL (4.00-5.40); RED CELL DISTRIBUTION WIDTH 19.2 % (11.5-14.5); WHITE BLOOD COUNT 5.2 10^3/uL (4.0-10.0)
[2018-01-17] MEDS: LEVOTHYROXINE 88MCG TABLET (0.088 MG) PO (06:26)
[2018-01-17] MEDS: SLF 3 ML SYR IV ×3 (06:26→22:12)
[2018-01-17] MEDS: BACLOFEN 10 MG TAB PO ×6 (06:26→22:10)
[2018-01-17 06:29] LABS: ANION GAP 4 MEQ/L (8-16); BLOOD UREA NITROGEN 16 MG/DL (7-18); CALCIUM LEVEL 9.1 MG/DL (8.8-10.2); CARBON DIOXIDE LEVEL 35 MEQ/L (21-32); CHLORIDE LEVEL 93 MEQ/L (98-107); CREATININE FOR GFR 1.16 MG/DL (0.55-1.30); GLOMERULAR FILTRATION RATE 50.1 (>45); GLUCOSE, FASTING 100 MG/DL (70-100); MAGNESIUM LEVEL 2.1 MG/DL (1.8-2.4); POTASSIUM SERUM 4.1 MEQ/L (3.5-5.1); SODIUM LEVEL 132 MEQ/L (136-145)
[2018-01-17 06:38] LABS: PLATELET COUNT, AUTOMATED 51 10^3/uL (150-450)
[2018-01-17 06:39] LABS: IMMATURE PLATELET FRACTION % 2.6 % (0.0-9.6)
[2018-01-17] MEDS: ENOXAPARIN 40 MG/0.4 ML SYRINGE (J1650) SC (08:58)
[2018-01-17] MEDS: NYSTATIN 500,000 U/5 ML SUSP UDC SS ×2 (08:58→22:12)
[2018-01-17] MEDS: VITAMIN D 1,000 INTERNATIONAL UNITS TABLET PO (08:58)
[2018-01-17] MEDS: OMEPRAZOLE 20 MG CAP PO (08:58)
[2018-01-17] MEDS: FOLIC ACID 1 MG TAB PO (08:59)
[2018-01-17] MEDS: ASPIRIN 81 MG ENTERIC TAB PO (08:59)
[2018-01-17] MEDS: ASCORBIC ACID 500 MG TAB PO (08:59)
[2018-01-17] MEDS: GABAPENTIN 300 MG CAP PO ×4 (08:59→22:12)
[2018-01-17] MEDS: ALLOPURINOL 300 MG TAB PO (08:59)
[2018-01-17] MEDS: POTASSIUM CHLORIDE 10 MEQ SR TABLET PO ×2 (08:59→22:11)
[2018-01-17] MEDS: PRAMIPEXOLE 0.25 MG TAB PO ×2 (08:59→22:12)
[2018-01-17] MEDS: CYANOCOBALAMIN 500 MCG TAB PO (08:59)
[2018-01-17] MEDS: ESCITALOPRAM OXALATE 10 MG TAB (LEXAPRO) PO (08:59)
[2018-01-17] MEDS: FERROUS SULFATE 325MG TAB PO (08:59)
[2018-01-17] MEDS: MAGNESIUM OXIDE 400 MG TAB (MAG-OX) PO ×3 (09:00→22:10)
[2018-01-17] MEDS: ADVAIR HFA 115/21MCG INHALER INH ×2 (09:04→20:37)
[2018-01-17] MEDS: VANCOMYCIN HCL 1,000 MG, VIAL MATE ADAPTER 1 EACH in D5W 250 ML IV (14:10)
[2018-01-17] MEDS: ACETAMINOPHEN TAB 650MG DOSE (2X325MG) PO (15:24)
[2018-01-17] MEDS: NORCO, ANEXSIA 5/325MG TABLET (HYDROcodone/ACETAMINOPHEN) PO (18:04)
[2018-01-17] MEDS: SIMVASTATIN 40 MG TAB PO (22:11)
[2018-01-17] MEDS: DOCUSATE SODIUM 100 MG CAP PO (22:11)
[2018-01-18] MEDS: CEFEPIME HCL 1 GM in D5W MINI-BAG PLUS 50 ML IV ×2 (01:10→12:30)
[2018-01-18] MEDS: ADVAIR HFA 115/21MCG INHALER INH ×2 (01:14→08:19)
[2018-01-18] MEDS: IPRATROPIUM 0.5MG/ALBUTEROL 2.5MG INH SOL UD 3ML (DUONEB)(J7620) NEB ×4 (01:45→20:00)
[2018-01-18] MEDS: ONDANSETRON 4MG/2ML VIAL (J2405) IV ×4 (03:09→20:36)
[2018-01-18 05:58] LABS: HEMATOCRIT 30.3 % (36.0-47.0); HEMOGLOBIN 9.8 g/dl (12.0-15.5); MEAN CORPUSCULAR HEMOGLOBIN 30.8 pg (27.0-33.0); MEAN CORPUSCULAR HGB CONC 32.3 g/dl (32.0-36.5); MEAN CORPUSCULAR VOLUME 95.3 fl (80.0-96.0); PLATELET COUNT, AUTOMATED 40 10^3/uL (150-450); RED BLOOD COUNT 3.18 10^6/uL (4.00-5.40); RED CELL DISTRIBUTION WIDTH 18.7 % (11.5-14.5); WHITE BLOOD COUNT 5.6 10^3/uL (4.0-10.0)
[2018-01-18] MEDS: LEVOTHYROXINE 88MCG TABLET (0.088 MG) PO (06:15)
[2018-01-18] MEDS: BACLOFEN 10 MG TAB PO (06:15)
[2018-01-18] MEDS: BENZONATATE 100 MG CAP PO (06:15)
[2018-01-18] MEDS: NORCO, ANEXSIA 5/325MG TABLET (HYDROcodone/ACETAMINOPHEN) PO (06:15)
[2018-01-18] MEDS: SLF 3 ML SYR IV ×3 (06:15→22:00)
[2018-01-18 06:19] LABS: ANION GAP 5 MEQ/L (8-16); BLOOD UREA NITROGEN 18 MG/DL (7-18); CALCIUM LEVEL 9.3 MG/DL (8.8-10.2); CARBON DIOXIDE LEVEL 32 MEQ/L (21-32); CHLORIDE LEVEL 94 MEQ/L (98-107); CREATININE FOR GFR 1.02 MG/DL (0.55-1.30); GLOMERULAR FILTRATION RATE 58.1 (>45); GLUCOSE, FASTING 132 MG/DL (70-100); MAGNESIUM LEVEL 2.1 MG/DL (1.8-2.4); POTASSIUM SERUM 4.4 MEQ/L (3.5-5.1); SODIUM LEVEL 131 MEQ/L (136-145); VANCOMYCIN LEVEL TROUGH 22.1 UG/ML (10.0-20.0)
[2018-01-18] MEDS: VANCOMYCIN HCL 1,000 MG, VIAL MATE ADAPTER 1 EACH in D5W 250 ML IV ×2 (07:00→13:20)
[2018-01-18] MEDS: MAGNESIUM OXIDE 400 MG TAB (MAG-OX) PO ×3 (09:00→20:43)
[2018-01-18] MEDS: VITAMIN D 1,000 INTERNATIONAL UNITS TABLET PO (09:00)
[2018-01-18] MEDS: ALLOPURINOL 300 MG TAB PO (09:00)
[2018-01-18] MEDS: OMEPRAZOLE 20 MG CAP PO (09:00)
[2018-01-18] MEDS: ESCITALOPRAM OXALATE 10 MG TAB (LEXAPRO) PO (09:00)
[2018-01-18] MEDS: ASPIRIN 81 MG ENTERIC TAB PO (09:00)
[2018-01-18] MEDS: NYSTATIN 500,000 U/5 ML SUSP UDC SS ×2 (09:00→21:00)
[2018-01-18] MEDS: FERROUS SULFATE 325MG TAB PO (09:00)
[2018-01-18] MEDS: ASCORBIC ACID 500 MG TAB PO (09:00)
[2018-01-18] MEDS: CYANOCOBALAMIN 500 MCG TAB PO (09:00)
[2018-01-18] MEDS: PRAMIPEXOLE 0.25 MG TAB PO ×2 (09:00→20:43)
[2018-01-18] MEDS: FOLIC ACID 1 MG TAB PO (09:00)
[2018-01-18] MEDS: POTASSIUM CHLORIDE 10 MEQ SR TABLET PO ×2 (09:00→20:43)
[2018-01-18] MEDS: NS 500 ML IV (12:00)
[2018-01-18 12:30] LABS: ABG BASE EXCESS 6.1 (-2.0-2.0); ABG HCO3 31.4 MEQ/L (22.0-26.0); ABG O2 SATURATION 89.6 % (95.0-99.0); ABG PARTIAL PRESSURE CO2 49.2 mmHg (35.0-45.0); ABG PARTIAL PRESSURE O2 61.5 mmHg (75.0-100.0); ABG STANDARD HCO3 29.9 MEQ/L (22.0-26.0); ABG TOTAL CO2 32.9 MEQ/L (23.0-31.0); ABG pH (ARTERIAL) 7.423 UNITS (7.350-7.450)
[2018-01-18 12:54] LABS: AMMONIA 18 uMOL/L (<32)
[2018-01-18 13:14] LABS: ALBUMIN 2.8 GM/DL (3.2-5.2); ALBUMIN/GLOBULIN RATIO 0.76 (1.00-1.93); ALKALINE PHOSPHATASE 118 U/L (45-117); ALT/SGPT 17 U/L (12-78); AST/SGOT 20 U/L (7-37); BILIRUBIN,DIRECT 0.1 MG/DL (0.0-0.2); BILIRUBIN,TOTAL 0.4 MG/DL (0.2-1.0); TOTAL PROTEIN 6.5 GM/DL (6.4-8.2)
[2018-01-18] MEDS ORDERED: POTASSIUM CHLORIDE INJ 20 MEQ in NS 1,000 ML IV (18:00)
[2018-01-18] MEDS: PROMETHAZINE INJ 25 MG/ML VIAL (J2550) IV (18:37)
[2018-01-18] MEDS: KCL 20MEQ in NS 1000ML 1,000 ML IV (18:37)
[2018-01-18] MEDS: SIMVASTATIN 40 MG TAB PO (20:42)
[2018-01-18] MEDS: DOCUSATE SODIUM 100 MG CAP PO (20:43)
[2018-01-18] MEDS: METOCLOPRAMIDE INJ 10MG/2ML VIAL (J2765) IV (22:50)
[2018-01-18] MEDS: ACETAMINOPHEN TAB 650MG DOSE (2X325MG) PO (23:35)
[2018-01-19 00:10] LABS: ASPERGILLUS GALACTOMANNAN AG 0.04 Index (0.00-0.49)
[2018-01-19] MEDS: ONDANSETRON 4MG/2ML VIAL (J2405) IV ×2 (00:40→13:23)
[2018-01-19] MEDS: CEFEPIME HCL 1 GM in D5W MINI-BAG PLUS 50 ML IV ×2 (01:19→13:23)
[2018-01-19] MEDS: IPRATROPIUM 0.5MG/ALBUTEROL 2.5MG INH SOL UD 3ML (DUONEB)(J7620) NEB ×4 (01:32→23:02)
[2018-01-19] MEDS: KCL 20MEQ in NS 1000ML 1,000 ML IV (02:50)
[2018-01-19 05:47] LABS: HEMATOCRIT 29.4 % (36.0-47.0); MEAN CORPUSCULAR HEMOGLOBIN 31.9 pg (27.0-33.0); MEAN CORPUSCULAR VOLUME 93.9 fl (80.0-96.0); RED BLOOD COUNT 3.13 10^6/uL (4.00-5.40); RED CELL DISTRIBUTION WIDTH 18.6 % (11.5-14.5); WHITE BLOOD COUNT 6.2 10^3/uL (4.0-10.0)
[2018-01-19 05:50] LABS: PLATELET COUNT, AUTOMATED 33 10^3/uL (150-450)
[2018-01-19] MEDS: SLF 3 ML SYR IV ×3 (06:00→21:44)
[2018-01-19] MEDS: LEVOTHYROXINE 88MCG TABLET (0.088 MG) PO (06:00)
[2018-01-19 06:03] LABS: ANION GAP 3 MEQ/L (8-16); BLOOD UREA NITROGEN 17 MG/DL (7-18); CALCIUM LEVEL 8.9 MG/DL (8.8-10.2); CARBON DIOXIDE LEVEL 33 MEQ/L (21-32); CHLORIDE LEVEL 98 MEQ/L (98-107); CREATININE FOR GFR 1.03 MG/DL (0.55-1.30); GLOMERULAR FILTRATION RATE 57.4 (>45); GLUCOSE, FASTING 109 MG/DL (70-100); SODIUM LEVEL 134 MEQ/L (136-145)
[2018-01-19 06:05] LABS: POTASSIUM SERUM 5.2 MEQ/L (3.5-5.1)
[2018-01-19] MEDS: PROMETHAZINE INJ 25 MG/ML VIAL (J2550) IV ×2 (06:05→16:19)
[2018-01-19] MEDS: ADVAIR HFA 115/21MCG INHALER INH ×2 (08:50→23:02)
[2018-01-19] MEDS: POTASSIUM CHLORIDE 10 MEQ SR TABLET PO (09:00)
[2018-01-19] MEDS: ASPIRIN 81 MG ENTERIC TAB PO (09:00)
[2018-01-19] MEDS: NYSTATIN 500,000 U/5 ML SUSP UDC SS ×2 (09:41→21:44)
[2018-01-19] MEDS: CYANOCOBALAMIN 500 MCG TAB PO (09:41)
[2018-01-19] MEDS: ALLOPURINOL 300 MG TAB PO (09:41)
[2018-01-19] MEDS: ESCITALOPRAM OXALATE 10 MG TAB (LEXAPRO) PO (09:41)
[2018-01-19] MEDS: MAGNESIUM OXIDE 400 MG TAB (MAG-OX) PO ×3 (09:41→21:43)
[2018-01-19] MEDS: ASCORBIC ACID 500 MG TAB PO (09:41)
[2018-01-19] MEDS: VITAMIN D 1,000 INTERNATIONAL UNITS TABLET PO (09:43)
[2018-01-19] MEDS: OMEPRAZOLE 20 MG CAP PO (09:43)
[2018-01-19] MEDS: PRAMIPEXOLE 0.25 MG TAB PO ×2 (09:43→21:43)
[2018-01-19] MEDS: METOCLOPRAMIDE INJ 10MG/2ML VIAL (J2765) IV ×2 (09:44→21:43)
[2018-01-19] MEDS: FOLIC ACID 1 MG TAB PO (09:47)
[2018-01-19] MEDS: FERROUS SULFATE 325MG TAB PO (09:47)
[2018-01-19] MEDS: NS 1,000 ML IV ×2 (10:45→21:44)
[2018-01-19] MEDS: ACETAMINOPHEN TAB 650MG DOSE (2X325MG) PO ×2 (13:23→22:58)
[2018-01-19] MEDS: SIMVASTATIN 40 MG TAB PO (21:43)
[2018-01-19] MEDS: DOCUSATE SODIUM 100 MG CAP PO (21:44)
[2018-01-19] MEDS: rOPINIRole 1MG TAB PO (23:49)
[2018-01-20] MEDS: CEFEPIME HCL 1 GM in D5W MINI-BAG PLUS 50 ML IV (01:00)
[2018-01-20] MEDS: IPRATROPIUM 0.5MG/ALBUTEROL 2.5MG INH SOL UD 3ML (DUONEB)(J7620) NEB ×4 (04:17→20:00)
[2018-01-20] MEDS: SLF 3 ML SYR IV ×3 (06:00→20:56)
[2018-01-20] MEDS: LEVOTHYROXINE 88MCG TABLET (0.088 MG) PO (06:00)
[2018-01-20] MEDS: NS 1,000 ML IV (06:30)
[2018-01-20] MEDS: ACETAMINOPHEN TAB 650MG DOSE (2X325MG) PO (07:01)
[2018-01-20] MEDS: FERROUS SULFATE 325MG TAB PO (08:41)
[2018-01-20] MEDS: ALLOPURINOL 300 MG TAB PO (08:41)
[2018-01-20] MEDS: MAGNESIUM OXIDE 400 MG TAB (MAG-OX) PO ×3 (08:41→20:56)
[2018-01-20] MEDS: OMEPRAZOLE 20 MG CAP PO (08:41)
[2018-01-20] MEDS: CYANOCOBALAMIN 500 MCG TAB PO (08:42)
[2018-01-20] MEDS: ESCITALOPRAM OXALATE 10 MG TAB (LEXAPRO) PO (08:42)
[2018-01-20] MEDS: NYSTATIN 500,000 U/5 ML SUSP UDC SS ×2 (08:42→20:55)
[2018-01-20] MEDS: ASCORBIC ACID 500 MG TAB PO (08:42)
[2018-01-20] MEDS: ONDANSETRON 4MG/2ML VIAL (J2405) IV (08:42)
[2018-01-20] MEDS: PRAMIPEXOLE 0.25 MG TAB PO ×2 (08:42→20:55)
[2018-01-20] MEDS: BENZONATATE 100 MG CAP PO (08:42)
[2018-01-20] MEDS: VITAMIN D 1,000 INTERNATIONAL UNITS TABLET PO (08:45)
[2018-01-20] MEDS: FOLIC ACID 1 MG TAB PO (08:45)
[2018-01-20] MEDS: ADVAIR HFA 115/21MCG INHALER INH ×2 (08:59→20:03)
[2018-01-20 09:31] LABS: ANION GAP 9 MEQ/L (8-16); BLOOD UREA NITROGEN 13 MG/DL (7-18); CALCIUM LEVEL 9.1 MG/DL (8.8-10.2); CARBON DIOXIDE LEVEL 27 MEQ/L (21-32); CHLORIDE LEVEL 99 MEQ/L (98-107); CREATININE FOR GFR 0.85 MG/DL (0.55-1.30); GLOMERULAR FILTRATION RATE > 60.0 (>45); GLUCOSE, FASTING 162 MG/DL (70-100); MAGNESIUM LEVEL 1.7 MG/DL (1.8-2.4); SODIUM LEVEL 135 MEQ/L (136-145)
[2018-01-20 10:21] LABS: HEMATOCRIT 25.7 % (36.0-47.0); HEMOGLOBIN 8.9 g/dl (12.0-15.5); MEAN CORPUSCULAR HEMOGLOBIN 32.4 pg (27.0-33.0); MEAN CORPUSCULAR HGB CONC 34.6 g/dl (32.0-36.5); MEAN CORPUSCULAR VOLUME 93.5 fl (80.0-96.0); RED BLOOD COUNT 2.75 10^6/uL (4.00-5.40); RED CELL DISTRIBUTION WIDTH 18.5 % (11.5-14.5); WHITE BLOOD COUNT 8.7 10^3/uL (4.0-10.0)
[2018-01-20 10:23] LABS: PLATELET COUNT, AUTOMATED 31 10^3/uL (150-450)
[2018-01-20 10:24] LABS: IMMATURE PLATELET FRACTION % 4.9 % (0.0-9.6); PLATELET F 1.6
[2018-01-20] MEDS: BACLOFEN 10 MG TAB PO ×3 (12:37→20:55)
[2018-01-20] MEDS: GABAPENTIN 300 MG CAP PO ×2 (12:38→20:55)
[2018-01-20] MEDS: METOCLOPRAMIDE INJ 10MG/2ML VIAL (J2765) IV ×2 (12:45→20:56)
[2018-01-20] MEDS: CEFUROXIME 500 MG TAB PO ×2 (14:08→20:55)
[2018-01-20] MEDS: SIMVASTATIN 40 MG TAB PO (20:55)
[2018-01-20] MEDS: DOCUSATE SODIUM 100 MG CAP PO (20:55)
[2018-01-21 00:08] LABS: HEPARIN INDUCED PLATELET ABY 0.096 OD (0.000-0.400)
[2018-01-21] MEDS: IPRATROPIUM 0.5MG/ALBUTEROL 2.5MG INH SOL UD 3ML (DUONEB)(J7620) NEB ×4 (02:00→20:00)
[2018-01-21] MEDS: SLF 3 ML SYR IV ×3 (05:34→22:01)
[2018-01-21] MEDS: LEVOTHYROXINE 88MCG TABLET (0.088 MG) PO (05:34)
[2018-01-21] MEDS: ADVAIR HFA 115/21MCG INHALER INH ×2 (09:48→22:06)
[2018-01-21] MEDS: NYSTATIN 500,000 U/5 ML SUSP UDC SS ×2 (10:37→22:00)
[2018-01-21] MEDS: GABAPENTIN 300 MG CAP PO ×2 (10:38→22:01)
[2018-01-21] MEDS: FOLIC ACID 1 MG TAB PO (10:38)
[2018-01-21] MEDS: CEFUROXIME 500 MG TAB PO ×2 (10:38→22:00)
[2018-01-21] MEDS: FERROUS SULFATE 325MG TAB PO (10:38)
[2018-01-21] MEDS: CYANOCOBALAMIN 500 MCG TAB PO (10:38)
[2018-01-21] MEDS: MAGNESIUM OXIDE 400 MG TAB (MAG-OX) PO ×3 (10:38→22:01)
[2018-01-21] MEDS: VITAMIN D 1,000 INTERNATIONAL UNITS TABLET PO (10:38)
[2018-01-21] MEDS: ESCITALOPRAM OXALATE 10 MG TAB (LEXAPRO) PO (10:38)
[2018-01-21] MEDS: ASCORBIC ACID 500 MG TAB PO (10:39)
[2018-01-21] MEDS: BACLOFEN 10 MG TAB PO ×4 (10:39→22:00)
[2018-01-21] MEDS: ALLOPURINOL 300 MG TAB PO (10:39)
[2018-01-21] MEDS: PRAMIPEXOLE 0.25 MG TAB PO ×2 (10:39→22:01)
[2018-01-21] MEDS: OMEPRAZOLE 20 MG CAP PO (10:39)
[2018-01-21 13:41] LABS: HEMATOCRIT 24.7 % (36.0-47.0); HEMOGLOBIN 8.4 g/dl (12.0-15.5); MEAN CORPUSCULAR HEMOGLOBIN 32.2 pg (27.0-33.0); MEAN CORPUSCULAR VOLUME 94.6 fl (80.0-96.0); RED BLOOD COUNT 2.61 10^6/uL (4.00-5.40); WHITE BLOOD COUNT 7.2 10^3/uL (4.0-10.0)
[2018-01-21 13:55] LABS: PLATELET COUNT, AUTOMATED 44 10^3/uL (150-450)
[2018-01-21 13:57] LABS: IMMATURE PLATELET FRACTION % 8.1 % (0.0-9.6)
[2018-01-21 14:07] LABS: ANION GAP 8 MEQ/L (8-16); BLOOD UREA NITROGEN 13 MG/DL (7-18); CALCIUM LEVEL 8.9 MG/DL (8.8-10.2); CARBON DIOXIDE LEVEL 31 MEQ/L (21-32); CHLORIDE LEVEL 90 MEQ/L (98-107); CREATININE FOR GFR 0.95 MG/DL (0.55-1.30); GLOMERULAR FILTRATION RATE > 60.0 (>45); GLUCOSE, FASTING 102 MG/DL (70-100); POTASSIUM SERUM 3.7 MEQ/L (3.5-5.1); SODIUM LEVEL 129 MEQ/L (136-145)
[2018-01-21] MEDS: FLUCONAZOLE 100 MG TAB PO (22:00)
[2018-01-21] MEDS: SIMVASTATIN 40 MG TAB PO (22:01)
[2018-01-21] MEDS: DOCUSATE SODIUM 100 MG CAP PO (22:01)
[2018-01-22] MEDS: IPRATROPIUM 0.5MG/ALBUTEROL 2.5MG INH SOL UD 3ML (DUONEB)(J7620) NEB ×4 (02:42→20:00)
[2018-01-22] MEDS: LEVOTHYROXINE 88MCG TABLET (0.088 MG) PO (05:23)
[2018-01-22] MEDS: SLF 3 ML SYR IV ×3 (05:24→21:28)
[2018-01-22 06:43] LABS: HEMATOCRIT 21.8 % (36.0-47.0); HEMOGLOBIN 7.4 g/dl (12.0-15.5); MEAN CORPUSCULAR HEMOGLOBIN 32.2 pg (27.0-33.0); MEAN CORPUSCULAR HGB CONC 33.9 g/dl (32.0-36.5); MEAN CORPUSCULAR VOLUME 94.8 fl (80.0-96.0); RED CELL DISTRIBUTION WIDTH 19.7 % (11.5-14.5); WHITE BLOOD COUNT 6.3 10^3/uL (4.0-10.0)
[2018-01-22 06:47] LABS: PLATELET COUNT, AUTOMATED 49 10^3/uL (150-450)
[2018-01-22 07:00] LABS: ANION GAP 8 MEQ/L (8-16); BLOOD UREA NITROGEN 13 MG/DL (7-18); CALCIUM LEVEL 8.6 MG/DL (8.8-10.2); CARBON DIOXIDE LEVEL 31 MEQ/L (21-32); CHLORIDE LEVEL 90 MEQ/L (98-107); CREATININE FOR GFR 0.88 MG/DL (0.55-1.30); GLOMERULAR FILTRATION RATE > 60.0 (>45); GLUCOSE, FASTING 105 MG/DL (70-100); POTASSIUM SERUM 3.5 MEQ/L (3.5-5.1); SODIUM LEVEL 129 MEQ/L (136-145)
[2018-01-22] MEDS: ADVAIR HFA 115/21MCG INHALER INH ×2 (09:13→21:00)
[2018-01-22] MEDS: NYSTATIN 500,000 U/5 ML SUSP UDC SS ×2 (10:00→21:27)
[2018-01-22] MEDS: CYANOCOBALAMIN 500 MCG TAB PO (10:00)
[2018-01-22] MEDS: FOLIC ACID 1 MG TAB PO (10:00)
[2018-01-22] MEDS: PRAMIPEXOLE 0.25 MG TAB PO ×2 (10:00→21:27)
[2018-01-22] MEDS: ASCORBIC ACID 500 MG TAB PO (10:00)
[2018-01-22] MEDS: FERROUS SULFATE 325MG TAB PO (10:00)
[2018-01-22] MEDS: ALLOPURINOL 300 MG TAB PO (10:00)
[2018-01-22] MEDS: CEFUROXIME 500 MG TAB PO ×2 (10:01→21:27)
[2018-01-22] MEDS: OMEPRAZOLE 20 MG CAP PO (10:01)
[2018-01-22] MEDS: GABAPENTIN 300 MG CAP PO ×2 (10:01→21:28)
[2018-01-22] MEDS: ESCITALOPRAM OXALATE 10 MG TAB (LEXAPRO) PO (10:01)
[2018-01-22] MEDS: VITAMIN D 1,000 INTERNATIONAL UNITS TABLET PO (10:01)
[2018-01-22] MEDS: MAGNESIUM OXIDE 400 MG TAB (MAG-OX) PO ×3 (10:02→21:28)
[2018-01-22] MEDS: BACLOFEN 10 MG TAB PO ×4 (10:02→21:28)
[2018-01-22 17:08] LABS: HEMATOCRIT 21.5 % (36.0-47.0); HEMOGLOBIN 7.3 g/dl (12.0-15.5); MEAN CORPUSCULAR HEMOGLOBIN 32.6 pg (27.0-33.0); RED BLOOD COUNT 2.24 10^6/uL (4.00-5.40); RED CELL DISTRIBUTION WIDTH 19.6 % (11.5-14.5); WHITE BLOOD COUNT 5.8 10^3/uL (4.0-10.0)
[2018-01-22 17:12] LABS: PLATELET COUNT, AUTOMATED 62 10^3/uL (150-450)
[2018-01-22] MEDS: DOCUSATE SODIUM 100 MG CAP PO (21:27)
[2018-01-22] MEDS: FLUCONAZOLE 100 MG TAB PO (21:27)
[2018-01-22] MEDS: SIMVASTATIN 40 MG TAB PO (21:27)
[2018-01-22 21:30] LABS: IMMEDIATE SPIN CROSSMATCH 1 1
[2018-01-23] MEDS: IPRATROPIUM 0.5MG/ALBUTEROL 2.5MG INH SOL UD 3ML (DUONEB)(J7620) NEB ×4 (01:37→19:15)
[2018-01-23] MEDS: LEVOTHYROXINE 88MCG TABLET (0.088 MG) PO (05:31)
[2018-01-23] MEDS: SLF 3 ML SYR IV ×3 (05:31→22:36)
[2018-01-23 06:22] LABS: HEMATOCRIT 26.1 % (36.0-47.0); HEMOGLOBIN 9.2 g/dl (12.0-15.5); MEAN CORPUSCULAR HEMOGLOBIN 33.1 pg (27.0-33.0); MEAN CORPUSCULAR HGB CONC 35.2 g/dl (32.0-36.5); MEAN CORPUSCULAR VOLUME 93.9 fl (80.0-96.0); RED BLOOD COUNT 2.78 10^6/uL (4.00-5.40); RED CELL DISTRIBUTION WIDTH 18.6 % (11.5-14.5); WHITE BLOOD COUNT 6.3 10^3/uL (4.0-10.0)
[2018-01-23 06:23] LABS: PLATELET COUNT, AUTOMATED 75 10^3/uL (150-450)
[2018-01-23 06:57] LABS: ANION GAP 4 MEQ/L (8-16); BLOOD UREA NITROGEN 11 MG/DL (7-18); CALCIUM LEVEL 8.9 MG/DL (8.8-10.2); CARBON DIOXIDE LEVEL 33 MEQ/L (21-32); CHLORIDE LEVEL 93 MEQ/L (98-107); CREATININE FOR GFR 0.87 MG/DL (0.55-1.30); GLOMERULAR FILTRATION RATE > 60.0 (>45); GLUCOSE, FASTING 105 MG/DL (70-100); POTASSIUM SERUM 4.2 MEQ/L (3.5-5.1); SODIUM LEVEL 130 MEQ/L (136-145)
[2018-01-23] MEDS: ADVAIR HFA 115/21MCG INHALER INH ×2 (08:07→20:00)
[2018-01-23] MEDS: VITAMIN D 1,000 INTERNATIONAL UNITS TABLET PO (09:00)
[2018-01-23] MEDS: CYANOCOBALAMIN 500 MCG TAB PO (09:55)
[2018-01-23] MEDS: NYSTATIN 500,000 U/5 ML SUSP UDC SS ×2 (09:55→22:34)
[2018-01-23] MEDS: BACLOFEN 10 MG TAB PO ×4 (09:55→22:35)
[2018-01-23] MEDS: GABAPENTIN 300 MG CAP PO ×2 (09:56→22:35)
[2018-01-23] MEDS: OMEPRAZOLE 20 MG CAP PO (09:56)
[2018-01-23] MEDS: ASCORBIC ACID 500 MG TAB PO (09:56)
[2018-01-23] MEDS: ALLOPURINOL 300 MG TAB PO (09:56)
[2018-01-23] MEDS: FERROUS SULFATE 325MG TAB PO (09:56)
[2018-01-23] MEDS: ESCITALOPRAM OXALATE 10 MG TAB (LEXAPRO) PO (09:57)
[2018-01-23] MEDS: MAGNESIUM OXIDE 400 MG TAB (MAG-OX) PO ×3 (09:57→21:00)
[2018-01-23] MEDS: FOLIC ACID 1 MG TAB PO (09:57)
[2018-01-23] MEDS: PRAMIPEXOLE 0.25 MG TAB PO ×2 (09:57→22:35)
[2018-01-23] MEDS: CEFUROXIME 500 MG TAB PO ×2 (09:59→22:34)
[2018-01-23] MEDS: CEPACOL LOZENGE PO (22:34)
[2018-01-23] MEDS: SIMVASTATIN 40 MG TAB PO (22:35)
[2018-01-23] MEDS: DOCUSATE SODIUM 100 MG CAP PO (22:35)
[2018-01-23] MEDS: FLUCONAZOLE 100 MG TAB PO (22:35)
[2018-01-24] MEDS: CEPACOL LOZENGE PO ×4 (00:55→20:17)
[2018-01-24] MEDS: IPRATROPIUM 0.5MG/ALBUTEROL 2.5MG INH SOL UD 3ML (DUONEB)(J7620) NEB ×4 (02:00→19:50)
[2018-01-24 06:12] LABS: HEMATOCRIT 24.8 % (36.0-47.0); HEMOGLOBIN 8.6 g/dl (12.0-15.5); MEAN CORPUSCULAR HEMOGLOBIN 32.3 pg (27.0-33.0); MEAN CORPUSCULAR HGB CONC 34.7 g/dl (32.0-36.5); MEAN CORPUSCULAR VOLUME 93.2 fl (80.0-96.0); PLATELET COUNT, AUTOMATED 115 10^3/uL (150-450); RED BLOOD COUNT 2.66 10^6/uL (4.00-5.40); RED CELL DISTRIBUTION WIDTH 19.1 % (11.5-14.5); WHITE BLOOD COUNT 8.3 10^3/uL (4.0-10.0)
[2018-01-24] MEDS: LEVOTHYROXINE 88MCG TABLET (0.088 MG) PO (06:29)
[2018-01-24] MEDS: SLF 3 ML SYR IV ×3 (06:30→21:31)
[2018-01-24 06:33] LABS: ANION GAP 7 MEQ/L (8-16); BLOOD UREA NITROGEN 10 MG/DL (7-18); CALCIUM LEVEL 8.7 MG/DL (8.8-10.2); CARBON DIOXIDE LEVEL 31 MEQ/L (21-32); CHLORIDE LEVEL 89 MEQ/L (98-107); CREATININE FOR GFR 0.81 MG/DL (0.55-1.30); GLOMERULAR FILTRATION RATE > 60.0 (>45); GLUCOSE, FASTING 98 MG/DL (70-100); POTASSIUM SERUM 3.7 MEQ/L (3.5-5.1); SODIUM LEVEL 127 MEQ/L (136-145)
[2018-01-24] MEDS: ADVAIR HFA 115/21MCG INHALER INH ×2 (07:36→19:53)
[2018-01-24] MEDS: OMEPRAZOLE 20 MG CAP PO (08:25)
[2018-01-24] MEDS: GABAPENTIN 300 MG CAP PO ×2 (08:25→20:16)
[2018-01-24] MEDS: MAGNESIUM OXIDE 400 MG TAB (MAG-OX) PO ×3 (08:25→20:16)
[2018-01-24] MEDS: CEFUROXIME 500 MG TAB PO ×2 (08:27→20:16)
[2018-01-24] MEDS: BACLOFEN 10 MG TAB PO ×4 (08:27→20:16)
[2018-01-24] MEDS: ESCITALOPRAM OXALATE 10 MG TAB (LEXAPRO) PO (08:28)
[2018-01-24] MEDS: FERROUS SULFATE 325MG TAB PO (08:28)
[2018-01-24] MEDS: CYANOCOBALAMIN 500 MCG TAB PO (08:28)
[2018-01-24] MEDS: FOLIC ACID 1 MG TAB PO (08:29)
[2018-01-24] MEDS: ALLOPURINOL 300 MG TAB PO (08:29)
[2018-01-24] MEDS: ASCORBIC ACID 500 MG TAB PO (08:29)
[2018-01-24] MEDS: NYSTATIN 500,000 U/5 ML SUSP UDC SS ×2 (08:30→20:17)
[2018-01-24] MEDS: VITAMIN D 1,000 INTERNATIONAL UNITS TABLET PO (08:30)
[2018-01-24] MEDS: PRAMIPEXOLE 0.25 MG TAB PO ×2 (08:31→20:16)
[2018-01-24] MEDS ORDERED: NS 1,000 ML IV (10:00)
[2018-01-24 13:10] LABS: IMMEDIATE SPIN CROSSMATCH 1 1
[2018-01-24] MEDS: BENZONATATE 100 MG CAP PO (16:01)
[2018-01-24 17:29] LABS: HEMATOCRIT 30.1 % (36.0-47.0); HEMOGLOBIN 10.1 g/dl (12.0-15.5)
[2018-01-24] MEDS: DOCUSATE SODIUM 100 MG CAP PO (20:16)
[2018-01-24] MEDS: FLUCONAZOLE 100 MG TAB PO (20:16)
[2018-01-24] MEDS: SIMVASTATIN 40 MG TAB PO (20:17)
[2018-01-24] MEDS: guaiFENesin DM LIQ 10ML UD PO (20:18)
[2018-01-25] MEDS: guaiFENesin DM LIQ 10ML UD PO ×2 (00:25→04:38)
[2018-01-25] MEDS: IPRATROPIUM 0.5MG/ALBUTEROL 2.5MG INH SOL UD 3ML (DUONEB)(J7620) NEB ×2 (02:00→08:00)
[2018-01-25 05:56] LABS: HEMATOCRIT 29.8 % (36.0-47.0); HEMOGLOBIN 10.2 g/dl (12.0-15.5); MEAN CORPUSCULAR HEMOGLOBIN 31.6 pg (27.0-33.0); MEAN CORPUSCULAR HGB CONC 34.2 g/dl (32.0-36.5); MEAN CORPUSCULAR VOLUME 92.3 fl (80.0-96.0); PLATELET COUNT, AUTOMATED 146 10^3/uL (150-450); RED BLOOD COUNT 3.23 10^6/uL (4.00-5.40); RED CELL DISTRIBUTION WIDTH 18.6 % (11.5-14.5)
[2018-01-25] MEDS: LEVOTHYROXINE 88MCG TABLET (0.088 MG) PO (06:15)
[2018-01-25] MEDS: SLF 3 ML SYR IV (06:15)
[2018-01-25 06:16] LABS: ANION GAP 7 MEQ/L (8-16); BLOOD UREA NITROGEN 11 MG/DL (7-18); CALCIUM LEVEL 9.1 MG/DL (8.8-10.2); CARBON DIOXIDE LEVEL 32 MEQ/L (21-32); CHLORIDE LEVEL 88 MEQ/L (98-107); CREATININE FOR GFR 0.84 MG/DL (0.55-1.30); GLOMERULAR FILTRATION RATE > 60.0 (>45); GLUCOSE, FASTING 117 MG/DL (70-100); POTASSIUM SERUM 3.7 MEQ/L (3.5-5.1); SODIUM LEVEL 127 MEQ/L (136-145)
[2018-01-25] MEDS: ADVAIR HFA 115/21MCG INHALER INH (08:28)
[2018-01-25] MEDS: OMEPRAZOLE 20 MG CAP PO (09:08)
[2018-01-25] MEDS: NYSTATIN 500,000 U/5 ML SUSP UDC SS (09:08)
[2018-01-25] MEDS: VITAMIN D 1,000 INTERNATIONAL UNITS TABLET PO (09:08)
[2018-01-25] MEDS: MAGNESIUM OXIDE 400 MG TAB (MAG-OX) PO (09:09)
[2018-01-25] MEDS: BACLOFEN 10 MG TAB PO (09:09)
[2018-01-25] MEDS: CYANOCOBALAMIN 500 MCG TAB PO (09:09)
[2018-01-25] MEDS: GABAPENTIN 300 MG CAP PO (09:09)
[2018-01-25] MEDS: FOLIC ACID 1 MG TAB PO (09:09)
[2018-01-25] MEDS: CEFUROXIME 500 MG TAB PO (09:10)
[2018-01-25] MEDS: ALLOPURINOL 300 MG TAB PO (09:10)
[2018-01-25] MEDS: FERROUS SULFATE 325MG TAB PO (09:10)
[2018-01-25] MEDS: PRAMIPEXOLE 0.25 MG TAB PO (09:10)
[2018-01-25] MEDS: ASCORBIC ACID 500 MG TAB PO (09:10)
[2018-01-25] MEDS: ESCITALOPRAM OXALATE 10 MG TAB (LEXAPRO) PO (09:10)
== END 2018-01-25 18:06 | disposition home health service (06) | DRG 194 ==
LOC: M PCU 01-15 21:13 → M MSPAV 01-16 21:37 → M ED 11:02 → M ED INP 15:16 → M PCU 17:51
PROC: 30233N1 Transfusion of Nonautologous Red Blood Cells into Peripheral Vein, Percutaneous Approach (ICD-10-PCS; principal; 2018-01-14)
DX: J18.9 Pneumonia, unspecified organism (principal); C85.10 Unspecified B-cell lymphoma, unspecified site; J44.0 Chronic obstructive pulmonary disease with (acute) lower respiratory infection; N17.9 Acute kidney failure, unspecified; G12.21 Amyotrophic lateral sclerosis; D84.9 Immunodeficiency, unspecified; D64.81 Anemia due to antineoplastic chemotherapy; D70.1 Agranulocytosis secondary to cancer chemotherapy; R41.82 Altered mental status, unspecified; E87.8 Other disorders of electrolyte and fluid balance, not elsewhere classified; F17.210 Nicotine dependence, cigarettes, uncomplicated; E03.9 Hypothyroidism, unspecified; E78.5 Hyperlipidemia, unspecified; G47.33 Obstructive sleep apnea (adult) (pediatric); F32.9 Major depressive disorder, single episode, unspecified; Z92.21 Personal history of antineoplastic chemotherapy; Z90.710 Acquired absence of both cervix and uterus

== ENCOUNTER 2018-01-27 11:52 | Inpatient (IN) | payer OTHER ==
[2018-01-27] MEDS: ALBUTEROL SULFATE 2.5 MG/0.5 ML INH NEB SOLN INH (12:58)
[2018-01-27] MEDS: IPRATROPIUM 0.5MG/ALBUTEROL 2.5MG INH SOL UD 3ML (DUONEB)(J7620) NEB ×2 (12:58→20:00)
[2018-01-27] MEDS: NS 1,000 ML IV ×2 (13:10→17:58)
[2018-01-27 13:13] LABS: ABG BASE EXCESS 5.1 (-2.0-2.0); ABG HCO3 30.1 MEQ/L (22.0-26.0); ABG O2 SATURATION 96.7 % (95.0-99.0); ABG PARTIAL PRESSURE CO2 46.3 mmHg (35.0-45.0); ABG PARTIAL PRESSURE O2 88.2 mmHg (75.0-100.0); ABG TOTAL CO2 31.5 MEQ/L (23.0-31.0); ABG pH (ARTERIAL) 7.431 UNITS (7.350-7.450)
[2018-01-27 13:19] LABS: APPEARANCE, URINE CLEAR (CLEAR); BACTERIA, URINE AUTO NEGATIVE (NEGATIVE); BILIRUBIN, URINE AUTO NEGATIVE (NEGATIVE); BLOOD, URINE BLOOD NEGATIVE (NEGATIVE); COLOR, URINE YELLOW (YELLOW); GLUCOSE, URINE (UA) AUTO NEGATIVE (NEGATIVE); KETONE, URINE AUTO NEGATIVE (NEGATIVE); LEUKOCYTE ESTERASE, URINE AUTO NEGATIVE (NEGATIVE); NITRITE, URINE AUTO NEGATIVE (NEGATIVE); PROTEIN, URINE AUTO NEGATIVE (NEGATIVE); RBC, URINE AUTO 5 /HPF (0-3); SQUAMOUS EPITHELIAL CELL UR AU 1 /HPF (0-6); UROBILINOGEN, URINE AUTO 0.2 mg/dL (0.0-2.0); WBC, URINE AUTO 2 /HPF (0-3)
[2018-01-27 13:45] LABS: BASO % 0.5 % (0.0-1.0); EOS # 0.1 10^3/uL (0.0-0.50); EOS % 1.5 % (0.0-3.0); HEMATOCRIT 31.9 % (36.0-47.0); HEMOGLOBIN 11.1 g/dl (12.0-15.5); IMMATURE GRANULOCYTE % 0.6 % (0-3.0); LYMPH # 2.1 10^3/uL (1.5-4.5); LYMPH % 25.7 % (24.0-44.0); MEAN CORPUSCULAR HGB CONC 34.8 g/dl (32.0-36.5); MEAN CORPUSCULAR VOLUME 91.9 fl (80.0-96.0); MONO # 1.5 10^3/uL (0.0-0.8); MONO % 18.3 % (0.0-5.0); NEUTROPHILS # 4.3 10^3/uL (1.8-7.7); NEUTROPHILS % 53.4 % (36.0-66.0); PLATELET COUNT, AUTOMATED 235 10^3/uL (150-450); RED BLOOD COUNT 3.47 10^6/uL (4.00-5.40); RED CELL DISTRIBUTION WIDTH 18.7 % (11.5-14.5)
[2018-01-27 13:57] LABS: INR 1.04; PROTHROMBIN TIME 13.7 SECONDS (12.4-14.5)
[2018-01-27 13:58] LABS: PARTIAL THROMBOPLASTIN TIME 28.1 SECONDS (26.8-37.9)
[2018-01-27 14:08] LABS: ALBUMIN/GLOBULIN RATIO 0.81 (1.00-1.93); ALKALINE PHOSPHATASE 127 U/L (45-117); ALT/SGPT 17 U/L (12-78); ANION GAP 7 MEQ/L (8-16); AST/SGOT 24 U/L (7-37); BILIRUBIN,DIRECT 0.2 MG/DL (0.0-0.2); BILIRUBIN,TOTAL 0.5 MG/DL (0.2-1.0); BLOOD UREA NITROGEN 15 MG/DL (7-18); CALCIUM LEVEL 9.1 MG/DL (8.8-10.2); CARBON DIOXIDE LEVEL 33 MEQ/L (21-32); CHLORIDE LEVEL 89 MEQ/L (98-107); CPK CREATINE PHOSPHOKINASE 100 U/L (26-192); CREATININE FOR GFR 1.06 MG/DL (0.55-1.30); GLOMERULAR FILTRATION RATE 55.4 (>45); GLUCOSE, FASTING 103 MG/DL (70-100); MAGNESIUM LEVEL 1.9 MG/DL (1.8-2.4); POTASSIUM SERUM 3.5 MEQ/L (3.5-5.1); SODIUM LEVEL 129 MEQ/L (136-145); THYROXINE (T4) 14.8 UG/DL (4.5-12.0); TOTAL PROTEIN 6.7 GM/DL (6.4-8.2); TROPONIN I < 0.02 NG/ML (< 0.10)
[2018-01-27] MEDS ORDERED: ISOVUE-370 76% 100ML VIAL (Q9967) As Ordered (14:11)
[2018-01-27 14:14] LABS: CK-MB VALUE MASS 1.9 NG/ML (<3.6); NT-PRO BNP 696 PG/ML (<125)
[2018-01-27] MEDS ORDERED: OLANZapine 10 MG TAB PO (14:30)
[2018-01-27] MEDS ORDERED: IPRATROPIUM 0.5MG/ALBUTEROL 2.5MG INH SOL UD 3ML (DUONEB)(J7620) NEB ×2 (14:30)
[2018-01-27 14:42] LABS: FREE T4 1.48 NG/DL (0.76-1.46)
[2018-01-27 15:09] LABS: OSMOLALITY URINE 321 MOSM/KG (500-800)
[2018-01-27 15:15] LABS: CREATININE,RANDOM URINE 62.7 MG/DL; SODIUM,RANDOM URINE 45 MEQ/L
[2018-01-27 15:16] LABS: OSMOLALITY SERUM 267 MOSM/KG (280-301)
[2018-01-27] MEDS: MEROPENEM INJ 1 GM in APPROPRIATE DILUENT 1 EA IV ×2 (16:13→22:46)
[2018-01-27] MEDS: GABAPENTIN 300 MG CAP PO ×2 (17:58→20:08)
[2018-01-27] MEDS: MAGNESIUM OXIDE 400 MG TAB (MAG-OX) PO ×2 (17:58→20:09)
[2018-01-27] MEDS: BACLOFEN 10 MG TAB PO ×2 (17:58→20:09)
[2018-01-27] MEDS: VANCOMYCIN HCL 1,000 MG, VIAL MATE ADAPTER 1 EACH in D5W 250 ML IV (17:59)
[2018-01-27] MEDS ORDERED: FLUCONAZOLE 200 MG in APPROPRIATE DILUENT 1 EA IV ×2 (18:00→20:00)
[2018-01-27] MEDS: FLUCONAZOLE 200 MG in APPROPRIATE DILUENT 1 EA IV (20:07)
[2018-01-27] MEDS: OMEPRAZOLE 20 MG CAP PO (20:08)
[2018-01-27] MEDS: DOCUSATE SODIUM 100 MG CAP PO (20:08)
[2018-01-27] MEDS: SIMVASTATIN 40 MG TAB PO (20:08)
[2018-01-27] MEDS: ACETAMINOPHEN TAB 650MG DOSE (2X325MG) PO (20:08)
[2018-01-27] MEDS: ADVAIR HFA 115/21MCG INHALER INH (20:33)
[2018-01-27] MEDS ORDERED: ANALGESIC BALM CRM 120 GM TOP (22:15)
[2018-01-27] MEDS: PRAMIPEXOLE 0.25 MG TAB PO (22:46)
[2018-01-28] MEDS: IPRATROPIUM 0.5MG/ALBUTEROL 2.5MG INH SOL UD 3ML (DUONEB)(J7620) NEB ×4 (01:31→20:00)
[2018-01-28] MEDS: VANCOMYCIN HCL 1,000 MG, VIAL MATE ADAPTER 1 EACH in D5W 250 ML IV (05:13)
[2018-01-28] MEDS: LEVOTHYROXINE 88MCG TABLET (0.088 MG) PO (05:13)
[2018-01-28 05:20] LABS: BASO % 0.8 % (0.0-1.0); EOS # 0.1 10^3/uL (0.0-0.50); EOS % 2.6 % (0.0-3.0); HEMATOCRIT 27.7 % (36.0-47.0); HEMOGLOBIN 9.2 g/dl (12.0-15.5); IMMATURE GRANULOCYTE % 0.6 % (0-3.0); LYMPH # 1.1 10^3/uL (1.5-4.5); LYMPH % 22.2 % (24.0-44.0); MEAN CORPUSCULAR HEMOGLOBIN 31.5 pg (27.0-33.0); MEAN CORPUSCULAR HGB CONC 33.2 g/dl (32.0-36.5); MEAN CORPUSCULAR VOLUME 94.9 fl (80.0-96.0); MONO # 1.3 10^3/uL (0.0-0.8); MONO % 26.8 % (0.0-5.0); NEUTROPHILS # 2.4 10^3/uL (1.8-7.7); PLATELET COUNT, AUTOMATED 199 10^3/uL (150-450); RED BLOOD COUNT 2.92 10^6/uL (4.00-5.40); RED CELL DISTRIBUTION WIDTH 18.7 % (11.5-14.5)
[2018-01-28 05:33] LABS: ANION GAP 6 MEQ/L (8-16); BLOOD UREA NITROGEN 12 MG/DL (7-18); CALCIUM LEVEL 8.2 MG/DL (8.8-10.2); CARBON DIOXIDE LEVEL 33 MEQ/L (21-32); CHLORIDE LEVEL 98 MEQ/L (98-107); CREATININE FOR GFR 0.87 MG/DL (0.55-1.30); GLOMERULAR FILTRATION RATE > 60.0 (>45); GLUCOSE, FASTING 97 MG/DL (70-100); POTASSIUM SERUM 3.7 MEQ/L (3.5-5.1); SODIUM LEVEL 137 MEQ/L (136-145)
[2018-01-28] MEDS: MEROPENEM INJ 1 GM in APPROPRIATE DILUENT 1 EA IV ×2 (06:49→15:52)
[2018-01-28] MEDS: ADVAIR HFA 115/21MCG INHALER INH ×2 (07:44→20:25)
[2018-01-28] MEDS: BACLOFEN 10 MG TAB PO ×4 (08:50→21:51)
[2018-01-28] MEDS: FERROUS SULFATE 325MG TAB PO (08:50)
[2018-01-28] MEDS: ASPIRIN 81 MG ENTERIC TAB PO (08:50)
[2018-01-28] MEDS: ALLOPURINOL 300 MG TAB PO (08:50)
[2018-01-28] MEDS: ESCITALOPRAM OXALATE 10 MG TAB (LEXAPRO) PO (08:50)
[2018-01-28] MEDS: MAGNESIUM OXIDE 400 MG TAB (MAG-OX) PO ×3 (08:50→21:52)
[2018-01-28] MEDS: CYANOCOBALAMIN 500 MCG TAB PO (08:51)
[2018-01-28] MEDS: GABAPENTIN 300 MG CAP PO ×4 (08:51→21:51)
[2018-01-28] MEDS: ENOXAPARIN 40 MG/0.4 ML SYRINGE (J1650) SC (08:51)
[2018-01-28] MEDS: PRAMIPEXOLE 0.25 MG TAB PO ×2 (08:51→21:51)
[2018-01-28 11:21] LABS: LACTIC ACID SEPSIS PROTOCOL 1.3 MMOL/L (0.4-2.0)
[2018-01-28 18:12] LABS: ANION GAP 5 MEQ/L (8-16); BLOOD UREA NITROGEN 10 MG/DL (7-18); CALCIUM LEVEL 8.7 MG/DL (8.8-10.2); CARBON DIOXIDE LEVEL 33 MEQ/L (21-32); CHLORIDE LEVEL 100 MEQ/L (98-107); CREATININE FOR GFR 0.86 MG/DL (0.55-1.30); GLOMERULAR FILTRATION RATE > 60.0 (>45); GLUCOSE, FASTING 115 MG/DL (70-100); POTASSIUM SERUM 3.9 MEQ/L (3.5-5.1); SODIUM LEVEL 138 MEQ/L (136-145)
[2018-01-28] MEDS: GASTROGRAFIN SOLUTION 30ML PO ×2 (18:42→19:17)
[2018-01-28 19:46] LABS: MAGNESIUM LEVEL 1.9 MG/DL (1.8-2.4)
[2018-01-28] MEDS ORDERED: ISOVUE-370 76% 100ML VIAL (Q9967) As Ordered (19:55)
[2018-01-28] MEDS: CEFUROXIME 500 MG TAB PO (21:51)
[2018-01-28] MEDS: OMEPRAZOLE 20 MG CAP PO (21:51)
[2018-01-28] MEDS: FLUCONAZOLE 100 MG TAB PO (21:51)
[2018-01-28] MEDS: DOCUSATE SODIUM 100 MG CAP PO (21:52)
[2018-01-28] MEDS: SIMVASTATIN 40 MG TAB PO (21:52)
[2018-01-29 01:42] LABS: APPEARANCE, URINE CLEAR (CLEAR); BACTERIA, URINE AUTO NEGATIVE (NEGATIVE); BILIRUBIN, URINE AUTO NEGATIVE (NEGATIVE); BLOOD, URINE BLOOD NEGATIVE (NEGATIVE); COLOR, URINE STRAW (YELLOW); GLUCOSE, URINE (UA) AUTO NEGATIVE (NEGATIVE); KETONE, URINE AUTO NEGATIVE (NEGATIVE); LEUKOCYTE ESTERASE, URINE AUTO NEGATIVE (NEGATIVE); NITRITE, URINE AUTO NEGATIVE (NEGATIVE); PROTEIN, URINE AUTO NEGATIVE (NEGATIVE); RBC, URINE AUTO 1 /HPF (0-3); SPECIFIC GRAVITY URINE AUTO 1.035 (1.002-1.035); SQUAMOUS EPITHELIAL CELL UR AU 0 /HPF (0-6); UROBILINOGEN, URINE AUTO 0.2 mg/dL (0.0-2.0); WBC, URINE AUTO 1 /HPF (0-3)
[2018-01-29] MEDS: IPRATROPIUM 0.5MG/ALBUTEROL 2.5MG INH SOL UD 3ML (DUONEB)(J7620) NEB ×4 (02:47→20:00)
[2018-01-29] MEDS: LEVOTHYROXINE 88MCG TABLET (0.088 MG) PO (05:24)
[2018-01-29] MEDS ORDERED: SLF 3 ML SYR IV (05:30)
[2018-01-29] MEDS: SLF 3 ML SYR IV ×3 (05:56→20:28)
[2018-01-29] MEDS: ADVAIR HFA 115/21MCG INHALER INH ×2 (07:56→20:11)
[2018-01-29] MEDS: ESCITALOPRAM OXALATE 10 MG TAB (LEXAPRO) PO (08:15)
[2018-01-29] MEDS: CEFUROXIME 500 MG TAB PO (08:16)
[2018-01-29] MEDS: BACLOFEN 10 MG TAB PO ×4 (08:16→20:26)
[2018-01-29] MEDS: MAGNESIUM OXIDE 400 MG TAB (MAG-OX) PO (08:16)
[2018-01-29] MEDS: CYANOCOBALAMIN 500 MCG TAB PO (08:16)
[2018-01-29] MEDS: GABAPENTIN 300 MG CAP PO ×4 (08:16→20:26)
[2018-01-29] MEDS: PRAMIPEXOLE 0.25 MG TAB PO ×2 (08:16→20:27)
[2018-01-29] MEDS: ALLOPURINOL 300 MG TAB PO (08:16)
[2018-01-29] MEDS: ASPIRIN 81 MG ENTERIC TAB PO (08:17)
[2018-01-29] MEDS: ENOXAPARIN 40 MG/0.4 ML SYRINGE (J1650) SC (08:17)
[2018-01-29] MEDS: FERROUS SULFATE 325MG TAB PO (08:17)
[2018-01-29] MEDS ORDERED: [UNRECOGNIZED DRUG - OTHER] OU (10:00)
[2018-01-29] MEDS ORDERED: ONDANSETRON 4 MG ORAL DISINTEGRATING TAB (Q0162 PER 1MG) PO (10:45)
[2018-01-29] MEDS ORDERED: LORazepam 1 MG TAB PO (10:45)
[2018-01-29] MEDS ORDERED: LORazepam 2 MG/ML VIAL (J2060) IV (10:45)
[2018-01-29] MEDS ORDERED: MORPHINE 4 MG/ML 1ML VIAL/SYRINGE (J2270) IV (10:45)
[2018-01-29] MEDS ORDERED: SCOPOLAMINE 1MG TRANSDERMAL PATCH TOP (10:45)
[2018-01-29] MEDS ORDERED: FLEET ENEMA PR (10:45)
[2018-01-29] MEDS: RESTASIS (PATIENT'S OWN MED) OU ×2 (12:29→21:00)
[2018-01-29] MEDS: DOCUSATE SODIUM 100 MG CAP PO (20:26)
[2018-01-29] MEDS: OMEPRAZOLE 20 MG CAP PO (20:26)
[2018-01-29] MEDS: FLUCONAZOLE 100 MG TAB PO (20:27)
[2018-01-29] MEDS: SIMVASTATIN 40 MG TAB PO (20:27)
[2018-01-29] MEDS ORDERED: MAGNESIUM OXIDE 400 MG TAB (MAG-OX) PO (21:00)
[2018-01-30] MEDS: IPRATROPIUM 0.5MG/ALBUTEROL 2.5MG INH SOL UD 3ML (DUONEB)(J7620) NEB ×3 (02:00→14:43)
[2018-01-30] MEDS: SLF 3 ML SYR IV ×2 (05:00→14:00)
[2018-01-30] MEDS: LEVOTHYROXINE 88MCG TABLET (0.088 MG) PO (05:00)
[2018-01-30] MEDS: ADVAIR HFA 115/21MCG INHALER INH (07:20)
[2018-01-30] MEDS: PRAMIPEXOLE 0.25 MG TAB PO (09:52)
[2018-01-30] MEDS: RESTASIS (PATIENT'S OWN MED) OU (09:52)
[2018-01-30] MEDS: BACLOFEN 10 MG TAB PO ×2 (09:52→12:09)
[2018-01-30] MEDS: GABAPENTIN 300 MG CAP PO ×2 (09:52→12:09)
[2018-01-30] MEDS: ESCITALOPRAM OXALATE 10 MG TAB (LEXAPRO) PO (09:52)
[2018-01-30] MEDS: MORPHINE 10MG/0.5ML ORAL CONCENTRATE SOLUTION U/D SL (10:45)
[2018-01-30] MEDS: ONDANSETRON 4MG/2ML VIAL (J2405) IV (10:45)
[2018-01-30] MEDS ORDERED: LORazepam 0.5 MG TAB PO (11:45)
[2018-01-30] MEDS ORDERED: HYOSCYAMINE SULFATE 0.125 MG SUBL TABLET SL (11:45)
== END 2018-01-30 17:00 | disposition home or self-care (01) | DRG 840 ==
LOC: M MS5PR 01-29 15:07 → M ED 11:52 → M ED INP 14:09 → M PCU 16:25
PROVIDERS: General Practice
DX: C83.38 Diffuse large B-cell lymphoma, lymph nodes of multiple sites (principal); J18.9 Pneumonia, unspecified organism; G12.21 Amyotrophic lateral sclerosis; E87.1 Hypo-osmolality and hyponatremia; D64.9 Anemia, unspecified; D69.6 Thrombocytopenia, unspecified; E03.9 Hypothyroidism, unspecified; Z51.5 Encounter for palliative care; Z66 Do not resuscitate; E78.5 Hyperlipidemia, unspecified; G47.33 Obstructive sleep apnea (adult) (pediatric); F32.9 Major depressive disorder, single episode, unspecified; J44.9 Chronic obstructive pulmonary disease, unspecified; R73.01 Impaired fasting glucose; E55.9 Vitamin D deficiency, unspecified; M10.9 Gout, unspecified; K21.9 Gastro-esophageal reflux disease without esophagitis; F17.210 Nicotine dependence, cigarettes, uncomplicated; E86.0 Dehydration; Z79.82 Long term (current) use of aspirin; Z79.52 Long term (current) use of systemic steroids; Z88.0 Allergy status to penicillin; Z88.6 Allergy status to analgesic agent; Z88.5 Allergy status to narcotic agent; Z79.899 Other long term (current) drug therapy; Z87.442 Personal history of urinary calculi